=== PATIENT | female | born 1930 | race Caucasian/White ===

== ENCOUNTER 2017-01-18 09:13 | Inpatient (IN) | payer MEDICARE, BC ==
--- NOTE | 2017-01-18 09:16 | EDM.PDOC ---
ED HPI GENERAL MEDICAL PROBLEM - General Chief Complaint: Trauma Stated Complaint: [facility] Time Seen by Provider: 01/18/17 09:16 - History of Present Illness INITIAL COMMENTS - FREE TEXT/NARRATIVE: 86-year-old female presents emergency room brought in by EMS after falling at her assisted living center. The patient denies any dizziness or palpitations. However, while putting her earrings on this morning the patient fell backwards she has a 17 or 18 year history of Parkinson's disease. She complains mostly of a headache and neck pain she has some right hip discomfort and left shoulder discomfort. She does not have chest pain or breathing difficulties. The patient feels weak however this is not new. Patient is not on anticoagulation at this time. She is taking Namenda and her Parkinson's medication. She is treated for hypertension. She did take her medications just before coming in. Her blood pressure is noted to be quite elevated upon arrival here. The patient has had a hip replacement on the right she has some discomfort after the fall this seems to be improving she has some left shoulder discomfort. She comes in with a c-collar in place and her discomfort seems to be improving she did strike the back of her head she has no bleeding or laceration. Right Hip Pain Score (Numeric/FACES): 5 Left Shoulder Pain Score (Numeric/FACES): 5 Head Pain Score (Numeric/FACES): 5 - Related Data Allergies Allergy/AdvReac Type Severity Reaction Status Date / Time No Known Allergies Allergy Verified 01/18/17 09:33 Home Meds: Home Meds Acetaminophen 650 mg PO BID 09/07/14 [History] Acetaminophen 650 mg PO Q4H PRN 09/07/14 [History] Calcium Carbonate [Tums] 500 mg PO DAILY PRN 09/07/14 [History] Carbidopa/Levodopa [Sinemet 25-100 mg] 1 tab PO BID 09/07/14 [History] Carbidopa/Levodopa [Sinemet Cr 50-200 mg] 1 tab PO QID 09/07/14 [History] Docusate Sodium 100 mg PO BID 09/07/14 [History] Memantine HCl [Namenda Xr] 28 mg PO DAILY 09/07/14 [History] Metoprolol Tartrate 12.5 mg PO BID 09/07/14 [History] Omeprazole [Prilosec] 20 mg PO DAILY 09/07/14 [History] Sertraline HCl [Zoloft] 75 mg PO DAILY 09/07/14 [History] Simethicone [Gas-X] 80 mg PO QID 09/07/14 [History] clonazePAM [Klonopin] 0.5 mg PO QPM 09/07/14 [History] guaiFENesin/Dextromethorphan [Tussin Dm Liquid] 5 ml PO Q4H PRN 09/07/14 [ History] rOPINIRole HCl [Requip] 4 mg PO BID 09/07/14 [History] Aspirin [Adult Low Dose Aspirin EC] 81 mg PO DAILY 10/02/15 [History] Cholecalciferol (Vitamin D3) [Vitamin D3] 1,000 unit PO BID 10/02/15 [History] Magnesium Chloride [Slow-Mag] 250 mg PO DAILY 10/02/15 [History] [place]-3/DHA/Epa/Fish Oil [Fish Oil 1,000 mg Softgel] 1,000 mg PO BID 10/02/15 [ History] Polyethylene Glycol 3350 [MiraLAX] 17 gm PO QAM PRN 10/02/15 [History] Sennosides [Senna] 1 tab PO BID 10/02/15 [History] Calcium Carbonate [Calcium] 500 mg PO DAILY 01/18/17 [History] Cyanocobalamin (Vitamin B12) [Vitamin B12] 1,000 mcg PO DAILY 01/18/17 [History] Donepezil [Aricept] 10 mg PO BEDTIME 01/18/17 [History] Enalapril [Vasotec] 5 mg PO DAILY 01/18/17 [History] Gabapentin [Neurontin] 200 mg PO TID 01/18/17 [History] Guaifenesin/Pseudoephedrne HCl [Mucinex D ER 600-60 mg Tablet] 1 tab PO BID PRN 01/18/17 [History] Hydrocortisone [Preparation H] 1 applic TOP BID PRN 01/18/17 [History] Mag Hydrox/Al Hydrox/Simeth [Antacid Plus Anti-Gas] 10 ml PO DAILY 01/18/17 [ History] Naproxen Sodium [Aleve] 220 mg PO BID 01/18/17 [History] Oxybutynin 2.5 mg PO BID 01/18/17 [History] Polyethylene Glycol 3350 [MiraLAX] 17 g PO DAILY 01/18/17 [History] QUEtiapine [SEROquel] 12.5 mg PO BEDTIME 01/18/17 [History] Simvastatin [Zocor] 10 mg PO BEDTIME 01/18/17 [History] Past Medical History HEENT History: Reports: Impaired Vision Gastrointestinal History: Reports: Chronic Constipation Other Genitourinary History: 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 Has been followed by Dr Reyna since that time.) - Past Surgical History Musculoskeletal Surgical History: Reports: Hip Replacement Social & Family History - Tobacco Use Smoking Status *Q: Never Smoker - Alcohol Use Days Per Week of Alcohol Use: 0 - Recreational Drug Use Recreational Drug Use: No - Living Situation & Occupation Living situation: Reports: Assisted Living Occupation: Retired Review of Systems - Review of Systems Review Of Systems: See Below Constitutional: Reports: Weakness. Denies: No Symptoms, Chills, Fever Eyes: Reports: No Symptoms Ears: Reports: No Symptoms Nose: Reports: No Symptoms Mouth/Throat: Reports: No Symptoms Respiratory: Reports: No Symptoms Cardiovascular: Reports: No Symptoms GI/Abdominal: Reports: No Symptoms Genitourinary: Reports: No Symptoms Musculoskeletal: Reports: No Symptoms Skin: Reports: No Symptoms Neurological: Reports: Weakness, Other (She has a history of Parkinson's) Psychiatric: Reports: No Symptoms ED EXAM, GENERAL - Physical Exam Exam: See Below Exam Limited By: No Limitations General Appearance: Alert, No Apparent Distress, Other (C collar in place the patient answers questions appropriately and is able to participate with the exam she is a little vague in answering some of her questions.) Eye Exam: Bilateral Eye: EOMI, Normal Inspection Ear Exam: Bilateral Ear: Canal Normal, TM normal Nose: Normal Inspection, Normal Mucosa, No Blood Throat/Mouth: Normal Inspection, Normal Lips, Normal Oropharynx Head: Atraumatic, Normocephalic Neck: Other (C collar in place) Respiratory/Chest: No Respiratory Distress, Lungs Clear, Normal Breath Sounds Cardiovascular: Regular Rate, Rhythm, No Edema, No Murmur GI/Abdominal: Normal Bowel Sounds, Soft, Non-Tender Extremities: Other (No crepitation or discomfort with pelvic manipulation she has some vague discomfort left shoulder the patient can move her right hip in the supine position she can lift her leg up internally and externally rotated against resistance without significant discomfort neurovascular status of the foot is normal) Neurological: Alert, Oriented, Normal Cognition Psychiatric: Normal Affect, Flat Affect Skin Exam: Warm, Dry, Intact Lymphatic: No Adenopathy Course - Vital Signs Last Recorded V/S: Last Vital Signs Temp 36.2 C 01/18/17 09:18 Pulse 63 01/18/17 10:55 Resp 14 01/18/17 09:18 BP 197/86 H 01/18/17 10:55 Pulse Ox 94 L 01/18/17 09:18 - Orders/Labs/Meds Orders: Active Orders 24 hr Category Date Time Status EKG Documentation Completion [RC] STAT Care 01/18/17 10:54 Active Cervical Spine wo Cont [CT] Stat Exams 01/18/17 09:29 Taken Chest 2V [CR] Stat Exams 01/18/17 10:47 Taken Head wo Cont [CT] Stat Exams 01/18/17 09:29 Taken Hip Min 2V or 3V w Pelvis Rt [CR] Stat Exams 01/18/17 09:30 Taken Shoulder Comp Lt [CR] Stat Exams 01/18/17 09:30 Taken CULTURE BLOOD [BC] Stat Lab 01/18/17 12:41 Received CULTURE BLOOD [BC] Stat Lab 01/18/17 12:47 Received cefTRIAXone [Rocephin] 1 gm Med 01/18/17 13:10 Active Sodium Chloride 0.9% [Normal Saline] 100 ml IV ONETIME Blood Culture x2 Reflex Set [OM.PC] Stat Oth 01/18/17 12:17 Ordered Medication Orders Ceftriaxone Sodium 1 gm/ (Sodium Chloride) 100 mls @ 200 mls/hr IV ONETIME ONE Stop: 01/18/17 13:39 Last Admin: 01/18/17 13:18 Dose: 200 mls/hr Labs: Laboratory Tests 01/18/17 01/18/17 01/18/17 Range/Units 10:59 10:59 10:59 WBC 7.59 (3.98-10.04) K/mm3 RBC 4.30 (3.98-5.22) M/mm3 Hgb 13.7 (11.2-15.7) gm/L Hct 40.7 (34.1-44.9) % MCV 94.7 (79.4-94.8) fl MCH 31.9 (25.6-32.2) pg MCHC 33.7 (32.2-35.5) g/dl RDW Std Deviation 49.3 H (36.4-46.3) fL Plt Count 114 L (182-369) K/mm3 MPV 9.9 (9.4-12.3) fl Neutrophils % (Manual) 69 H (40-60) % Band Neutrophils % 0 (0-10) % Lymphocytes % (Manual) 25 (20-40) % Atypical Lymphs % 0 % Monocytes % (Manual) 2 (2-10) % Eosinophils % (Manual) 4 (0.7-5.8) % Basophils % (Manual) 0 L (0.1-1.2) Platelet Estimate Adequate Plt Morphology Comment Normal RBC Morph Comment Normal Sodium 148 H (136-145) mEq/L Potassium 3.9 (3.5-5.1) mEq/L Chloride 110 H (98-107) mEq/L Carbon Dioxide 24 (21-32) mEq/L Anion Gap 17.9 H (5-15) BUN 26 H (7-18) mg/dL Creatinine 1.0 (0.55-1.02) mg/dL Est Cr Clr Drug Dosing 37.68 mL/min Estimated GFR (MDRD) 53 (>60) mL/min BUN/Creatinine Ratio 26.0 H (14-18) Glucose 108 (83-115) mg/dL Calcium 8.8 (8.5-10.1) mg/dL Total Bilirubin 0.5 (0.2-1.0) mg/dL AST 15 (15-37) U/L ALT 8 L (14-59) U/L Alkaline Phosphatase 70 (46-116) U/L Troponin I < 0.017 (0.00-0.056) ng/mL NT-Pro-B Natriuret Pep TNP Total Protein 6.4 (6.4-8.2) g/dl Albumin 3.8 (3.4-5.0) g/dl Globulin 2.6 gm/dL Albumin/Globulin Ratio 1.5 (1-2) Meds: Medications Generic Name Dose Route Start Last Admin Trade Name Freq PRN Reason Stop Dose Admin Ceftriaxone Sodium 1 gm/ 100 mls @ 200 mls/hr 01/18/17 13:10 01/18/17 13:18 Sodium Chloride IV 01/18/17 13:39 200 mls/hr ONETIME ONE Administration Discontinued Medications Generic Name Dose Route Start Last Admin Trade Name Dana PRN Reason Stop Dose Admin Ceftriaxone Sodium 1,000 mg 01/18/17 12:30 Rocephin IVPUSH Q24H KELLY Labetalol HCl 5 mg 01/18/17 10:15 01/18/17 10:27 Normodyne IVPUSH 01/18/17 10:16 5 mg ONETIME ONE Administration Protocol Labetalol HCl 5 mg 01/18/17 10:55 01/18/17 10:55 Normodyne IVPUSH 01/18/17 10:56 5 mg ONETIME ONE Administration Protocol - Re-Assessments/Exams Free Text/Narrative Re-Assessment/Exam: 01/18/17 10:[address] were obtained which show no acute changes. Favor shoulder show some degenerative changes fracture dislocation visualized portion of the clavicle appears normal pelvis and hip show a prosthesis that appears to be in good alignment no obvious loosening however I will have radiology over read this. C-collar removed patient is doing much better with this she has reasonable range of motion with her left shoulder. She states it was clicking and grinding while pushing her wheelchair around, this was before her fall but she cannot get it to make noise now. Patient's blood pressure was initially quite elevated at 202 she received 5 mg labetalol and this is coming down. Patient's O2 saturation is as low as 86% at times usually around 88% to 90%. She does have this intermittent cough we'll go ahead and check a chest x-ray 01/18/17 12:26 Chest x-ray is suspicious for left lower lobe retrocardiac infiltrate. Patient has been started on oxygen and we tried to wean her off her sats dropped to 87- 88%. Case discussed with Dr. Ellis our hospitalist who would like to get a radiology interpretation on this patient. I will start Rocephin 1 g after obtaining blood cultures. 01/18/17 13:19 Radiology thought she was developing bronchial wall thickening in the lower lobes suspicious of bronchitis with hypoxia patient be admitted on a suspicion for pneumonia. Departure - Departure Time of Disposition: 13:10 Disposition: Admitted As Inpatient 68 Clinical Impression: Hypoxia, Pneumonia, Hypertension - Discharge Information Referrals: RatFidel fenton MD [Primary Care Provider] - Forms: ED Department Discharge - My Orders Last 24 Hours: My Active Orders 01/18/17 09:29 Cervical Spine wo Cont [CT] Stat Head wo Cont [CT] Stat 01/18/17 09:30 Hip Min 2V or 3V w Pelvis Rt [CR] Stat Shoulder Comp Lt [CR] Stat 01/18/17 10:47 Chest 2V [CR] Stat 01/18/17 10:54 EKG Documentation Completion [RC] STAT 01/18/17 12:17 Blood Culture x2 Reflex Set [OM.PC] Stat 01/18/17 12:41 CULTURE BLOOD [BC] Stat 01/18/17 12:47 CULTURE BLOOD [BC] Stat 01/18/17 13:10 cefTRIAXone [Rocephin] 1 gm Sodium Chloride 0.9% [Normal Saline] 100 ml IV ONETIME - Assessment/Plan Last 24 Hours: My Active Orders 01/18/17 09:29 Cervical Spine wo Cont [CT] Stat Head wo Cont [CT] Stat 01/18/17 09:30 Hip Min 2V or 3V w Pelvis Rt [CR] Stat Shoulder Comp Lt [CR] Stat 01/18/17 10:47 Chest 2V [CR] Stat 01/18/17 10:54 EKG Documentation Completion [RC] STAT 01/18/17 12:17 Blood Culture x2 Reflex Set [OM.PC] Stat 01/18/17 12:41 CULTURE BLOOD [BC] Stat 01/18/17 12:47 CULTURE BLOOD [BC] Stat 01/18/17 13:10 cefTRIAXone [Rocephin] 1 gm Sodium Chloride 0.9% [Normal Saline] 100 ml IV ONETIME
[2017-01-18] MEDS ORDERED: Labetalol 100 MG/20 ML MDV IVPUSH ONE ×2 (10:15→10:55)
[2017-01-18] MEDS ORDERED: cefTRIAXone 1,000 MG VIAL IVPUSH SCH (12:30)
[2017-01-18] MEDS ORDERED: cefTRIAXone 1 GM in Sodium Chloride 0.9% 100 ML IV ONE (13:10)
[2017-01-18] MEDS ORDERED: Acetaminophen 325 MG Tab PO ONE (13:35)
--- NOTE | 2017-01-18 14:23 | PCM.HP ---
H&P History of Present Illness - General Date of Service: 01/18/17 Admit Problem/Dx: Admission Diagnosis/Problem Admission Diagnosis/Problem Pneumonia Source of Information: Patient, Family, Old Records, Provider, RN Notes Reviewed History Limitations: Reports: Physical Impairment - History of Present Illness Initial Comments - Free Text/Narative: This is an 86-year-old elderly white female with past medical history of Hypertension, Hyperlipidemia, GERD, Myasthenia Gravis, Osteoarthritis, Chronic Malaise and Fatigue, Bone and Cartilage disorder, Shortness of Breath, Magnesium Metabolism Disorder, Hyperhidrosis, Restless Leg Syndrome, Anxiety, Depression, and Paralysis Agitans/Parkinson's Disease who presents to emergency department for evaluation after suffering a a non traumatic fall at her assisted living facility. She denies any prodromal symptoms and reports no LOC. Patient carries a history of Parkinson's disease for over 17 or 18 years now. On presentation to the emergency department, she complains of headache, neck pain, some right hip discomfort and left shoulder pain. While in ED, she was found to have blood pressure readings of 199/94 and 197/96 mm per mercury. At time of my examination, she denies any of the above issues except for chronic generalized weakness. Her initial workup shows a CBC remarkable for platelet of 114, and neutrophils of 69%. Her chemistry is remarkable for sodium of 148, chloride of 110, anion gap of 17.9, BUN of 26, and ALT of 8. Her initial troponin is less than 0.017. Her head CT scan, cervical CT scan, and shoulder x-ray are all negative for acute abnormal findings. However her chest x -ray report reads bronchial wall thickening in the lower lobe suspicious for bronchitis. Patient is being admitted for bronchitis, malignant hypertension and status post non-traumatic fall. She is DNR/DNI Right Hip Pain Score (Numeric/FACES): 5 Left Shoulder Pain Score (Numeric/FACES): 5 Head Pain Score (Numeric/FACES): 5 - Related Data Allergies/Adverse Reactions: Allergies Allergy/AdvReac Type Severity Reaction Status Date / Time No Known Allergies Allergy Verified 01/18/17 09:33 Home Medications: Home Meds Acetaminophen 650 mg PO BID 09/07/14 [History] Acetaminophen 650 mg PO Q4H PRN 09/07/14 [History] Calcium Carbonate [Tums] 500 mg PO DAILY PRN 09/07/14 [History] Carbidopa/Levodopa [Sinemet 25-100 mg] 1 tab PO BID 09/07/14 [History] Carbidopa/Levodopa [Sinemet Cr 50-200 mg] 1 tab PO QID 09/07/14 [History] Docusate Sodium 100 mg PO BID 09/07/14 [History] Memantine HCl [Namenda Xr] 28 mg PO DAILY 09/07/14 [History] Metoprolol Tartrate 12.5 mg PO BID 09/07/14 [History] Omeprazole [Prilosec] 20 mg PO DAILY 09/07/14 [History] Sertraline HCl [Zoloft] 75 mg PO DAILY 09/07/14 [History] Simethicone [Gas-X] 80 mg PO QID 09/07/14 [History] clonazePAM [Klonopin] 0.5 mg PO QPM 09/07/14 [History] guaiFENesin/Dextromethorphan [Tussin Dm Liquid] 5 ml PO Q4H PRN 09/07/14 [ History] rOPINIRole HCl [Requip] 4 mg PO BID 09/07/14 [History] Aspirin [Adult Low Dose Aspirin EC] 81 mg PO DAILY 10/02/15 [History] Cholecalciferol (Vitamin D3) [Vitamin D3] 1,000 unit PO BID 10/02/15 [History] [place]-3/DHA/Epa/Fish Oil [Fish Oil 1,000 mg Softgel] 1,000 mg PO BID 10/02/15 [ History] Polyethylene Glycol 3350 [MiraLAX] 17 gm PO QAM PRN 10/02/15 [History] Sennosides [Senna] 1 tab PO BID 10/02/15 [History] Calcium Carbonate [Calcium] 500 mg PO DAILY 01/18/17 [History] Cyanocobalamin (Vitamin B12) [Vitamin B12] 1,000 mcg PO DAILY 01/18/17 [History] Donepezil [Aricept] 10 mg PO BEDTIME 01/18/17 [History] Enalapril [Vasotec] 5 mg PO DAILY 01/18/17 [History] Gabapentin [Neurontin] 200 mg PO TID 01/18/17 [History] Guaifenesin/Pseudoephedrne HCl [Mucinex D ER 600-60 mg Tablet] 1 tab PO BID PRN 01/18/17 [History] Hydrocortisone [Preparation H] 1 applic TOP BID PRN 01/18/17 [History] Mag Hydrox/Al Hydrox/Simeth [Antacid Plus Anti-Gas] 10 ml PO DAILY PRN 01/18/17 [History] Naproxen Sodium [Aleve] 220 mg PO BID 01/18/17 [History] Oxybutynin 2.5 mg PO BID 01/18/17 [History] Polyethylene Glycol 3350 [MiraLAX] 17 g PO DAILY 01/18/17 [History] QUEtiapine [SEROquel] 12.5 mg PO BEDTIME 01/18/17 [History] Simvastatin [Zocor] 10 mg PO BEDTIME 01/18/17 [History] Past Medical History HEENT History: Reports: Impaired Vision Other HEENT History: esophogeal reflux Cardiovascular History: Reports: High Cholesterol, Hypertension Respiratory History: Reports: SOB Gastrointestinal History: Reports: Chronic Constipation Other 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 Has been followed by Dr Reyna since that time.) Other Neuro History: unsteady gait, altered mental status, RLS, myestenia gravis Psychiatric History: Reports: Anxiety, Depression - Past Surgical History Musculoskeletal Surgical History: Reports: Hip Replacement Social & Family History - Family History Family Medical History: Noncontributory - Tobacco Use Smoking Status *Q: Never Smoker Second Hand Smoke Exposure: No - Caffeine Use Caffeine Use: Reports: None - Alcohol Use Days Per Week of Alcohol Use: 0 - Recreational Drug Use Recreational Drug Use: No - Living Situation & Occupation Living situation: Reports: Assisted Living Occupation: Retired H&P Review of Systems - Review of Systems: Review Of Systems: See Below General: Reports: Weakness. Denies: Fever, Chills, Malaise HEENT: Reports: No Symptoms Pulmonary: Denies: Shortness of Breath Cardiovascular: Denies: Chest Pain Gastrointestinal: Denies: Abdominal Pain, Nausea, Vomiting Genitourinary: Reports: No Symptoms Musculoskeletal: Reports: No Symptoms Skin: Denies: Cyanosis, Diaphoresis, Bruising, Erythema Psychiatric: Denies: Confusion, Depression, Anxiety Neurological: Reports: Pre-Existing Deficit, Weakness, Gait Disturbance. Denies : Confusion Hematologic/Lymphatic: Reports: No Symptoms Immunologic: Reports: No Symptoms Exam - Exam Exam: See Below - Vital Signs Vital Signs: Last Vital Signs Temp 36.2 C 01/18/17 09:18 Pulse 63 01/18/17 10:55 Resp 14 01/18/17 09:18 BP 197/86 H 01/18/17 10:55 Pulse Ox 94 L 01/18/17 09:18 Weight: 70.307 kg - Exam General: Alert, Oriented, Cooperative HEENT: Conjunctiva Clear, EACs Clear, EOMI, Hearing Intact, Mucosa Moist & [place] , Nares Patent, Normal Nasal Septum, Posterior Pharynx Clear, Pupils Equal, Pupils Reactive Neck: Supple, Trachea Midline Lungs: Clear to Auscultation, Normal Respiratory Effort Cardiovascular: Regular Rate, Regular Rhythm GI/Abdominal Exam: Normal Bowel Sounds, Soft, Non-Tender, No Organomegaly, No Distention, No Abnormal Bruit (Female) Exam: Deferred Rectal (Female) Exam: Deferred Back Exam: Normal Inspection, Decreased Range of Motion Extremities: Normal Inspection, Normal Range of Motion, Non-Tender, No Pedal Edema, Normal Capillary Refill, Other (Bradykinesia) Peripheral Pulses: 2+: Posterior Tibial (L), Posterior Tibial (R), Dorsalis Pedis (L), Dorsalis Pedis (R) Skin: Warm, Dry, Intact Neuro Extensive - Mental Status: Oriented x3, Normal Cognition, Memory Intact Neuro Extensive - Motor, Sensory, Reflexes: CN II-XII Intact (limitedt but fairly intact), Abnormal Gait, Tremor (resting) Psychiatric: Alert, Normal Mood. 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 - All imaging studies are negative: Right Hip XR, Head CT and Cervical CT scan - Fall Precautions - PT/OT for eval Bronchitis - CXR report reads bronchial lower lobe thickening; no infiltrate or consolidations - She has cough but w/o fever - I do not think she has pneumonia - She already received IV ATB in ED; Continue IV Rocephin and will add Azithromycin - Mycoplasma Ag/Strep pneumonia Test and Sputum Cx Malignant HTN - Has hx/o HTN - Blood pressure readings of 199/94 and 197/96 mm per mercury on admission - Resume Home BP Meds - PRN anti-hypertensive medications for BP > 140/90 Chronic: Hypertension Hyperlipidemia GERD Myasthenia gravis Osteoarthritis Malaise and Fatigue Bone and cartilage disorder Shortness of breath Magnesium metabolism disorder Hyperhidrosis Restless leg syndrome Anxiety Depression Paralysis Agitans/Parkinson's Disease Plan: Admit to Med-Surg Resume Home Meds Routine AM Labs PT/OT consult Fall Precautions CM/SW for d/c planning Additional orders as above Code status: DNR/DNI
[2017-01-18] MEDS ORDERED: Albuterol/Ipratropium 3.0-0.5 MG/3 ML Neb Soln NEB PRN (15:57)
[2017-01-18] MEDS ORDERED: Bisacodyl 5 MG Tab PO PRN (15:57)
[2017-01-18] MEDS ORDERED: Acetaminophen/HYDROcodone 325-5 MG Tab PO PRN (15:57)
[2017-01-18] MEDS ORDERED: LORazepam 2 MG/ML MDV IV PRN (15:57)
[2017-01-18] MEDS ORDERED: HYDROmorphone 1 MG/ML Syringe IVPUSH PRN (15:57)
[2017-01-18] MEDS ORDERED: Temazepam 7.5 MG Cap PO PRN (15:57)
[2017-01-18] MEDS ORDERED: Polyethylene Glycol 3350 Powder 17 GM Packet PO PRN (15:57)
[2017-01-18] MEDS ORDERED: Ondansetron 4 MG/2 ML SDV IV PRN (15:57)
[2017-01-18] MEDS ORDERED: Docusate Sodium 100 MG Cap PO PRN (15:57)
[2017-01-18] MEDS ORDERED: Acetaminophen 325 MG Tab PO PRN ×2 (15:57→16:05)
[2017-01-18] MEDS ORDERED: Calcium Carbonate 500 MG Tab.Chew PO PRN (16:05)
[2017-01-18] MEDS ORDERED: guaiFENesin/Dextromethorphan 100-10 MG/5 ML Soln 5 ML Cup PO PRN (16:05)
[2017-01-18] MEDS ORDERED: Hydrocortisone 1% Crm 30 GM Tube TOP PRN (16:05)
[2017-01-18] MEDS ORDERED: Azithromycin 500 MG in Sodium Chloride 0.9% 250 ML IV ONE (16:11)
[2017-01-18] MEDS ORDERED: Metoprolol Tartrate 5 MG/5 ML SDV IVPUSH PRN (17:02)
[2017-01-18] MEDS: ClonazePAM 0.5 MG Tab PO SCH (17:24)
[2017-01-18] MEDS: Simethicone 80 MG Tab.Chew PO SCH ×2 (17:24→20:25)
[2017-01-18] MEDS: Saccharomyces Boulardii (Probiotic) 250 MG Cap PO SCH (20:26)
[2017-01-18] MEDS: Oxybutynin 5 MG Tab PO SCH (20:27)
[2017-01-18] MEDS: Gabapentin 100 MG Cap PO SCH (20:29)
[2017-01-18] MEDS: QUEtiapine 25 MG Tab PO SCH (20:29)
[2017-01-18] MEDS: Donepezil 10 MG Tab PO SCH (20:31)
[2017-01-18] MEDS: Metoprolol Tartrate 25 MG Tab PO SCH (20:32)
[2017-01-18] MEDS: Simvastatin 10 MG Tab PO SCH (20:33)
[2017-01-18] MEDS: rOPINIRole 1 MG Tab PO SCH (20:35)
[2017-01-18] MEDS: Cholecalciferol (Vitamin D3) 1,000 Unit Tab PO SCH (20:36)
[2017-01-18] MEDS: Sennosides 8.6 MG Tab PO SCH (20:36)
[2017-01-18] MEDS: Acetaminophen 325 MG Tab PO SCH (20:36)
[2017-01-18] MEDS ORDERED: Carbidopa/Levodopa 25-100 MG Tab PO SCH (21:00)
[2017-01-19] MEDS: Carbidopa/Levodopa 25-100 MG Tab.ER PO SCH ×6 (02:20→20:29)
[2017-01-19] MEDS ORDERED: Carbidopa/Levodopa 25-100 MG Tab PO SCH (06:00)
--- NOTE | 2017-01-19 07:49 | PCM.PN ---
- General Info Date of Service: 01/19/17 Admission Dx/Problem (Free Text): Admission Diagnosis/Problem Admission Diagnosis/Problem Pneumonia Subjective Update: Follow Up Functional Status: Reports: Pain Controlled, Tolerating Diet, Urinating, New Symptoms (Chest pain with sneezing) - Review of Systems General: Denies: Fever, Weakness, Fatigue, Malaise, Chills HEENT: Reports: No Symptoms Pulmonary: Denies: Shortness of Breath Cardiovascular: Reports: Chest Pain Gastrointestinal: Denies: Abdominal Pain, Nausea, Vomiting Genitourinary: Reports: No Symptoms Musculoskeletal: Reports: No Symptoms Skin: Denies: Cyanosis Neurological: Reports: Difficulty Walking, Gait Disturbance. Denies: Confusion , Weakness Psychiatric: Denies: Depression, Anxiety, Agitation, Hallucinations Systems Review Comment:: No significant overnight or acute issues. She slept good. She reports chest pain with sneezing. Her HRs slightly dropped in the upper 50s. She has no other new complaints. - Patient Data Vitals - Most Recent: Last Vital Signs Temp 36.4 C 01/19/17 05:20 Pulse 59 L 01/19/17 05:20 Resp 18 01/19/17 05:20 BP 138/78 01/19/17 04:00 Pulse Ox 93 L 01/19/17 05:20 Weight - Most Recent: 70.307 kg I&O - Last 24 Hours: Intake & Output 01/18/17 01/19/17 01/19/17 22:59 06:59 14:59 Intake Total 400 Balance 400 Lab Results Last 24 Hours: Laboratory Results - last 24 hr 01/19/17 Range/Units 06:14 WBC 5.84 (3.98-10.04) K/mm3 RBC 4.20 (3.98-5.22) M/mm3 Hgb 13.4 (11.2-15.7) gm/L Hct 40.4 (34.1-44.9) % MCV 96.2 H (79.4-94.8) fl MCH 31.9 (25.6-32.2) pg MCHC 33.2 (32.2-35.5) g/dl RDW Std Deviation 51.1 H (36.4-46.3) fL Plt Count 108 L (182-369) K/mm3 MPV 10.5 (9.4-12.3) fl Neut % (Auto) 62.1 (34.0-71.1) % Lymph % (Auto) 22.3 (19.3-51.7) % [place] % (Auto) 6.8 (4.7-12.5) % Eos % (Auto) 8.2 H (0.7-5.8) Baso % (Auto) 0.3 (0.1-1.2) % Neut # (Auto) 3.62 (1.56-6.13) K/mm3 Lymph # (Auto) 1.30 (1.18-3.74) K/mm3 [place]cher # (Auto) 0.40 H (0.24-0.36) K/mm3 Eos # (Auto) 0.48 H (0.04-0.36) K/mm3 Baso # (Auto) 0.02 (0.01-0.08) K/mm3 Med Orders - Current: Current Medications Acetaminophen (Tylenol) 650 mg PO Q4H PRN PRN Reason: Pain Acetaminophen (Tylenol) 650 mg PO BID [facility] Last Admin: 01/18/17 20:36 Dose: 650 mg Hydrocodone Bitart/Acetaminophen (Lewis 325-5 Mg) 1 tab PO Q4H PRN PRN Reason: Pain (moderate 4-6) Al Hydroxide/Mg Hydroxide (Mag-Al Plus) 10 ml PO DAILY [facility] Albuterol/Ipratropium (Duoneb 3.0-0.5 Mg/3 Ml) 3 ml NEB Q4H PRN PRN Reason: Shortness Of Breath/wheezing Aspirin (Halfprin) 81 mg PO DAILY [facility] Bisacodyl (Dulcolax) 5 mg PO DAILY PRN PRN Reason: Constipation Calcium Carbonate/Glycine (Tums) 500 mg PO DAILY [facility] Calcium Carbonate/Glycine (Tums) 500 mg PO DAILY PRN PRN Reason: Heartburn Carbidopa/Levodopa (Sinemet Cr 25-100 Mg) 2 tab PO Q6H [facility] Last Admin: 01/19/17 02:26 Dose: Not Given Carbidopa/Levodopa (Sinemet 25-100 Mg) 1 tab PO DAILY@0600 [facility] Last Admin: 01/19/17 05:31 Dose: 1 tab Cholecalciferol (Vitamin D3) 1,000 units PO BID [facility] Last Admin: 01/18/17 20:36 Dose: 1,000 units Clonazepam (Klonopin) 0.5 mg PO QPM [facility] Last Admin: 01/18/17 17:24 Dose: 0.5 mg Cyanocobalamin (Vitamin B12) 1,000 mcg PO DAILY [facility] Docusate Sodium (Colace) 100 mg PO BID PRN PRN Reason: Constipation Donepezil HCl (Aricept) 10 mg PO BEDTIME [facility] Last Admin: 01/18/17 20:31 Dose: 10 mg Enalapril Maleate (Vasotec) 5 mg PO DAILY [facility] Gabapentin (Neurontin) 200 mg PO TID [facility] Last Admin: 01/18/17 20:29 Dose: 200 mg Guaifenesin/Phenylephrine HCl (Robitussin Dm) 5 ml PO Q4H PRN PRN Reason: Cough Hydralazine HCl (Apresoline) 10 mg IVPUSH Q4H PRN PRN Reason: Hypertension Hydrocortisone (Hydrocortisone 1% Crm) 0 gm TOP BID PRN PRN Reason: Pain Hydromorphone HCl (Dilaudid) 0.25 mg IVPUSH Q2H PRN PRN Reason: Pain (severe 7-10) Azithromycin 500 mg/ Sodium (Chloride) 250 mls @ 250 mls/hr IV Q24H [facility] Ceftriaxone Sodium 1 gm/ (Sodium Chloride) 100 mls @ 200 mls/hr IV Q24H [facility] Lorazepam (Ativan) 0.5 mg IV Q6H PRN PRN Reason: Anxiety Magnesium Sulfate (Pharmacy To Dose - Magnesium Replacement) 1 dose .XX ASDIRECTED [facility] Metoprolol Tartrate (Lopressor) 12.5 mg PO BID [facility] Last Admin: 01/18/17 20:32 Dose: 12.5 mg Metoprolol Tartrate (Lopressor) 5 mg IVPUSH Q4H PRN PRN Reason: Tachycardia Memantine Xr [ (Nemenda Xr] 28mg) 28 mg PO DAILY [facility] Naproxen Sodium (220mg) 220 mg PO BID [facility] Ondansetron HCl (Zofran) 4 mg IV Q6H PRN PRN Reason: Nausea/Vomiting Oxybutynin Chloride (Oxybutynin) 2.5 mg PO BID [facility] Last Admin: 01/18/17 20:27 Dose: 2.5 mg Pantoprazole Sodium (Protonix) 40 mg PO DAILY [facility] Polyethylene Glycol (Miralax) 17 gm PO DAILY PRN PRN Reason: Constipation Polyethylene Glycol (Miralax) 17 gm PO DAILY [facility] Potassium Chloride (Pharmacy To Dose - Potassium Replacement) 1 dose .XX ASDIRECTED [facility] Quetiapine Fumarate (Seroquel) 12.5 mg PO BEDTIME [facility] Last Admin: 01/18/17 20:29 Dose: 12.5 mg Ropinirole HCl (Requip) 4 mg PO BID [facility] Last Admin: 01/18/17 20:35 Dose: 4 mg Saccharomyces Boulardii (Florastor) 500 mg PO BID [facility] Last Admin: 01/18/17 20:26 Dose: 500 mg Senna (Senna) 8.6 mg PO BID [facility] Last Admin: 01/18/17 20:36 Dose: 8.6 mg Senna/Docusate Sodium (Senna Plus) 1 tab PO BID PRN PRN Reason: Constipation Sertraline HCl (Zoloft) 75 mg PO DAILY [facility] Simethicone (Simethicone) 80 mg PO QID [facility] Last Admin: 01/18/17 20:25 Dose: 80 mg Simvastatin (Zocor) 10 mg PO BEDTIME [facility] Last Admin: 01/18/17 20:33 Dose: 10 mg Temazepam (Restoril) 7.5 mg PO BEDTIME PRN PRN Reason: Sleep Discontinued Medications Acetaminophen (Tylenol) 650 mg PO NOW ONE Stop: 01/18/17 13:36 Last Admin: 01/18/17 13:39 Dose: 650 mg Ceftriaxone Sodium (Rocephin) 1,000 mg IVPUSH Q24H [facility] Last Admin: 01/18/17 13:22 Dose: Not Given Ceftriaxone Sodium 1 gm/ (Sodium Chloride) 100 mls @ 200 mls/hr IV ONETIME ONE Stop: 01/18/17 13:39 Last Admin: 01/18/17 13:18 Dose: 200 mls/hr Azithromycin 500 mg/ Sodium (Chloride) 250 mls @ 250 mls/hr IV ONETIME ONE Stop: 01/18/17 17:10 Last Admin: 01/18/17 17:23 Dose: 250 mls/hr Labetalol HCl (Normodyne) 5 mg IVPUSH ONETIME ONE PRN Reason: Protocol Stop: 01/18/17 10:16 Last Admin: 01/18/17 10:27 Dose: 5 mg Labetalol HCl (Normodyne) 5 mg IVPUSH ONETIME ONE PRN Reason: Protocol Stop: 01/18/17 10:56 Last Admin: 01/18/17 10:55 Dose: 5 mg - Exam General: Alert, Oriented, Cooperative, No Acute Distress HEENT: Pupils Equal, Pupils Reactive, EOMI, Mucous Membr. Moist/[place]ason Neck: Supple, Trachea Midline, No JVD Lungs: Clear to Auscultation, Normal Respiratory Effort Cardiovascular: Regular Rate, Regular Rhythm GI/Abdominal Exam: Normal Bowel Sounds, Soft, Non-Tender, No Organomegaly, No Distention, No Abnormal Bruit, No Mass (Female) Exam: Deferred Back Exam: Normal Inspection, Decreased Range of Motion Extremities: Normal Inspection, Non-Tender, No Pedal Edema, Normal Capillary Refill, Other (bradykinesia) Peripheral Pulses: 2+: Dorsalis Pedis (L), Dorsalis Pedis (R) Skin: Warm, Dry, Intact Neurological: No New Focal Deficit. No: Normal Gait Psy/Mental Status: Alert, Normal Mood. No: Normal Affect, Anxious, Agitated, Suicidal Ideation, Withdrawal Symptoms - Problem List Review Problem List Initiated/Reviewed/Updated: Yes - My Orders Last 24 Hours: My Active Orders 01/18/17 15:57 Height and Weight [RC] DAILY Intake and Output [RC] 04,16 Oxygen Therapy [RC] PRN Pulse Oximetry [RC] PRN Up With Assistance [RC] ASDIRECTED Up ad [place] [RC] ASDIRECTED VTE/DVT Education [RC] PER UNIT ROUTINE Vital Signs [RC] Q4HR Acetaminophen/HYDROcodone [Lewis 325-5 MG] 1 tab PO Q4H PRN Albuterol/Ipratropium [DuoNeb 3.0-0.5 MG/3 ML] 3 ml NEB Q4H PRN Bisacodyl [Dulcolax] 5 mg PO DAILY PRN Docusate Sodium [Colace] 100 mg PO BID PRN Docusate Sodium/Sennosides [Senna Plus] 1 tab PO BID PRN HYDROmorphone [Dilaudid] 0.25 mg IVPUSH Q2H PRN LORazepam [Ativan] 0.5 mg IV Q6H PRN Ondansetron [Zofran] 4 mg IV Q6H PRN Polyethylene Glycol 3350 [MiraLAX] 17 gm PO DAILY PRN Temazepam [Restoril] 7.5 mg PO BEDTIME PRN Sequential Compression Device [OM.PC] Per Unit Routine Resuscitation Status Routine 01/18/17 16:03 Antiembolic Devices [RC] QSHIFT 01/18/17 16:05 RT Aerosol Therapy [RC] ASDIRECTED Acetaminophen [Tylenol] 650 mg PO Q4H PRN Calcium Carbonate [Tums] 500 mg PO DAILY PRN Dextromethorphan/guaiFENesin [Robitussin DM] 5 ml PO Q4H PRN Hydrocortisone [Hydrocortisone 1% Crm] 0 gm TOP BID PRN 01/18/17 16:10 CULTURE SPUTUM + SMEAR [RM] Stat STREP PNEUMONIAE ANTIGEN [MREF] Stat 01/18/17 17:00 Simethicone 80 mg PO QID 01/18/17 17:02 Metoprolol Tartrate [Lopressor] 5 mg IVPUSH Q4H PRN hydrALAZINE [Apresoline] 10 mg IVPUSH Q4H PRN 01/18/17 17:15 Magnesium Rep Pharmacy to Dose [Pharmacy to Dose - Magnesium Replacement] 1 dose .XX ASDIRECTED Potassium Rep Pharmacy to Dose [Pharmacy to Dose - Potassium Replacement] 1 dose .XX ASDIRECTED 01/18/17 18:00 ClonazePAM [KlonoPIN] 0.5 mg PO QPM 01/18/17 21:00 Acetaminophen [Tylenol] 650 mg PO BID Cholecalciferol (Vitamin D3) [Vitamin D3] 1,000 units PO BID Donepezil [Aricept] 10 mg PO BEDTIME Gabapentin [Neurontin] 200 mg PO TID Metoprolol Tartrate [Lopressor] 12.5 mg PO BID Naproxen Sodium 220 mg PO BID Oxybutynin 2.5 mg PO BID QUEtiapine [SEROquel] 12.5 mg PO BEDTIME Saccharomyces Boulardii [Florastor] 500 mg PO BID Sennosides [Senna] 8.6 mg PO BID Simvastatin [Zocor] 10 mg PO BEDTIME rOPINIRole [Requip] 4 mg PO BID 01/18/17 Dinner Regular Diet [DIET] 01/19/17 06:00 Carbidopa/Levodopa [Sinemet 25-100 mg] 1 tab PO DAILY@0600 01/19/17 06:14 CRP [C-REACTIVE PROTEIN] [CHEM] AM 01/19/17 09:00 Alum Hydrox/Mag Hydrox/Simeth [Mag-Al Plus] 10 ml PO DAILY Aspirin [Halfprin] 81 mg PO DAILY Calcium Carbonate [Tums] 500 mg PO DAILY Cyanocobalamin (Vitamin B12) [Vitamin B12] 1,000 mcg PO DAILY Enalapril [Vasotec] 5 mg PO DAILY Memantine HCl 28 mg PO DAILY Pantoprazole [ProTONIX] 40 mg PO DAILY Polyethylene Glycol 3350 [MiraLAX] 17 gm PO DAILY Sertraline [Zoloft] 75 mg PO DAILY 01/19/17 13:00 cefTRIAXone [Rocephin] 1 gm Sodium Chloride 0.9% [Normal Saline] 100 ml IV Q24H 01/19/17 16:00 Azithromycin [Zithromax] 500 mg Sodium Chloride 0.9% [Normal Saline] 250 ml IV Q24H 01/20/17 05:11 CBC WITH AUTO DIFF [HEME] AM CRP [C-REACTIVE PROTEIN] [CHEM] AM 01/21/17 05:11 CBC WITH AUTO DIFF [HEME] AM CRP [C-REACTIVE PROTEIN] [CHEM] AM 01/22/17 05:11 CBC WITH AUTO DIFF [HEME] AM CRP [C-REACTIVE PROTEIN] [CHEM] AM 01/23/17 05:11 CRP [C-REACTIVE PROTEIN] [CHEM] AM - Plan Plan:: Assessment/Plan: Acute: Bronchitis - CXR report reads bronchial lower lobe thickening; no infiltrate or consolidations - She has cough but w/o fever - I do not think she has pneumonia - She already received IV ATB in ED; Continue IV Rocephin and will add Azithromycin - Mycoplasma Ag/Strep pneumonia Test and Sputum Cx Malignant HTN, Improved - Has hx/o HTN - Blood pressure readings of 199/94 and 197/96 mm per mercury on admission - Resume Home BP Meds - PRN anti-hypertensive medications for BP > 140/90 - Will add low dose Clonddine if needed - Continue to monitor Mild Hypernatremia, Improved - NA 148--> 146 - She is on psychotropic meds - Continue to monitor S/p Status Post Fall - Non-traumatic - She is not on blood thinners - 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
[2017-01-19] MEDS ORDERED: cefTRIAXone 1 GM Vial IV SCH (09:00)
[2017-01-19] MEDS: Polyethylene Glycol 3350 Powder 17 GM Packet PO SCH (10:02)
[2017-01-19] MEDS: Memantine 10 MG Tab PO SCH ×2 (10:02→20:24)
[2017-01-19] MEDS: rOPINIRole 1 MG Tab PO SCH ×2 (10:03→20:36)
[2017-01-19] MEDS: Acetaminophen 325 MG Tab PO SCH ×2 (10:04→20:22)
[2017-01-19] MEDS: Oxybutynin 5 MG Tab PO SCH ×2 (10:04→20:27)
[2017-01-19] MEDS: Pantoprazole 40 MG Tab.CR PO SCH (10:05)
[2017-01-19] MEDS: Cyanocobalamin (Vitamin B12) 1,000 MCG Tab PO SCH (10:05)
[2017-01-19] MEDS: Sertraline 50 MG Tab PO SCH (10:06)
[2017-01-19] MEDS: Simethicone 80 MG Tab.Chew PO SCH ×4 (10:06→20:28)
[2017-01-19] MEDS: Sennosides 8.6 MG Tab PO SCH ×2 (10:07→20:24)
[2017-01-19] MEDS: Gabapentin 100 MG Cap PO SCH ×3 (10:07→20:41)
[2017-01-19] MEDS: Aspirin 81 MG Tab.EC PO SCH (10:08)
[2017-01-19] MEDS: Calcium Carbonate 500 MG Tab.Chew PO SCH (10:08)
[2017-01-19] MEDS: Enalapril 5 MG Tab PO SCH (10:14)
[2017-01-19] MEDS: Saccharomyces Boulardii (Probiotic) 250 MG Cap PO SCH ×2 (10:14→20:35)
[2017-01-19] MEDS: Metoprolol Tartrate 25 MG Tab PO SCH ×2 (10:15→20:34)
[2017-01-19] MEDS ORDERED: HYDROmorphone 0.5 MG/0.5 ML Syringe IVPUSH PRN (11:05)
[2017-01-19] MEDS: Aluminum Hydroxide/Magnesium Hydroxide/Simethicone Susp 30 ML Cup PO SCH (12:06)
[2017-01-19] MEDS: Cholecalciferol (Vitamin D3) 1,000 Unit Tab PO SCH ×2 (12:07→20:26)
[2017-01-19] MEDS: hydrALAZINE 20 MG/ML SDV IVPUSH PRN (12:31)
[2017-01-19] MEDS ORDERED: cefTRIAXone 1 GM in Sodium Chloride 0.9% 100 ML IV SCH (13:00)
[2017-01-19] MEDS: Carbidopa/Levodopa 25-100 MG Tab PO SCH (16:31)
[2017-01-19] MEDS: Azithromycin 500 MG in Sodium Chloride 0.9% 250 ML IV SCH (16:34)
--- NOTE | 2017-01-19 17:11 | CR ---
Left shoulder: Three views of the left shoulder were obtained. Comparison: No prior left shoulder study. Joint space narrowing and degenerative sclerosis and subchondral cystic change is seen within the glenohumeral joint. Inferior spurring is also noted within the glenohumeral joint. Calcification is seen off the medial inferior shoulder believed to be dystrophic and incidental. Acromioclavicular joint shows minimal degenerative change. No acute fracture, dislocation or other bony abnormality is seen. Impression: 1. Severe degenerative change within the glenohumeral joint. 2. Other incidental findings. Nothing acute is appreciated. Diagnostic code #2
--- NOTE | 2017-01-19 17:11 | CT ---
Head CT Technique: Multiple axial sections through the brain were obtained. Intravenous contrast was not utilized. Comparison: Previous head CT study of 10/02/15. Findings: Ventricles along with basal cisterns and sulci over the convexities are mildly prominent for the patient's age. Diminished density is noted within portions of the periventricular and subcortical white matter compatible with small vessel ischemic demyelination change. No other abnormal parenchymal densities are seen. No evidence of intracranial hemorrhage. No midline shift or mass effect is seen. Bone window settings were reviewed which show no acute calvarial abnormality. Visualized sinuses are clear. Impression: 1. Senescent change as described above. 2. Nothing acute is appreciated on noncontrast head CT study. Diagnostic code #2 I agree with preliminary report issued by [facility] ([facility] preliminary report dictated on 01/18/17, 11:19 AM Central Time)
--- NOTE | 2017-01-19 17:11 | CT ---
CT cervical spine Technique: Multiple axial sections were obtained from above C1 inferiorly to the mid T2 level. Reconstructed sagittal and coronal images were reviewed. Comparison: Prior CT cervical spine exam of 12/17/11 is available. Findings: Moderate disc space narrowing is noted at C2-C3 through C4-C5. Severe disc space narrowing is noted C5-C6 and C6-C7. Degenerative endplate sclerosis is noted C5-C6 and C6-C7. Posterior osteophytes are noted at C3-C4, C5-C6 and C6-C7. Anterior osteophytes are scattered throughout the cervical spine which are most prominent at C5-C6 and C6-C7. Degenerative uncovertebral change is seen throughout the cervical spine which are most prominent at C5-C6 and C6-C7. Degenerative change is noted between the dens and anterior arch of C1. Moderate left-sided neural foraminal stenosis is noted at C3-C4. Mild to moderate bilateral neural foraminal stenosis is noted at C4-C5. Moderate bilateral neural foraminal stenosis is noted at C5-C6. Vertebral bodies and posterior arches are intact with no fracture being seen. No abnormal subluxation is noted. Diffuse degenerative apophyseal change is scattered throughout the cervical spine. Impression: 1. Diffuse degenerative change as described above. 2. Nothing acute is seen on CT study of the cervical spine. 3. When compared to prior cervical spine CT exam, degenerative change has mildly progressed. Diagnostic code #2 I agree with preliminary report issued by [facility] ([facility] preliminary report dictated on 01/18/17, 11:21 AM Central Time)
--- NOTE | 2017-01-19 17:11 | CR ---
Chest: Two views of the chest were obtained. Comparison: Previous chest x-ray of 09/07/14. Slight bronchial wall thickening is seen within portions of the perihilar markings. Minimal bronchitis is possible. Lungs otherwise are clear. Heart size appears at the upper limits of normal. Tortuous thoracic aorta is seen. Mild degenerative change is scattered within the spine. Impression: 1. Possible slight bronchitis within the right perihilar region. 2. Other incidental findings. Diagnostic code #3 Agree with preliminary report issued by [facility] ([facility] preliminary report dictated on 01/18/17, 1:33 PM Central Time)
--- NOTE | 2017-01-19 17:11 | CR ---
Pelvis and right hip: AP view of the pelvis was obtained as well as AP and lateral views of the right hip. Comparison: Previous pelvis and right hip study of 02/18/13. 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 Components are aligned. Joint space narrowing and osteophytes are seen within the left hip. Degenerative change is partially visualized within the lumbar spine. Bony structures are osteopenic. Heterotopic bone is noted around the lateral right hip. No acute fracture or other abnormality is appreciated. Impression: 1. Right hip prosthesis. Degenerative change and other incidental findings. 2. No acute abnormality is identified on AP pelvis or on two-view right hip exam. Diagnostic code #2 I agree with preliminary report issued by [facility] ([facility] preliminary report dictated on 01/18/17, 11:52 AM Central Time)
[2017-01-19] MEDS: ClonazePAM 0.5 MG Tab PO SCH (18:00)
[2017-01-19] MEDS: Donepezil 10 MG Tab PO SCH (20:30)
[2017-01-19] MEDS: QUEtiapine 25 MG Tab PO SCH (20:31)
[2017-01-19] MEDS: Simvastatin 10 MG Tab PO SCH (20:33)
[2017-01-20] MEDS: Carbidopa/Levodopa 25-100 MG Tab.ER PO SCH ×5 (01:43→22:27)
[2017-01-20] MEDS: Carbidopa/Levodopa 25-100 MG Tab PO SCH ×2 (06:11→15:01)
[2017-01-20] MEDS: Metoprolol Tartrate 25 MG Tab PO SCH ×2 (07:50→22:27)
[2017-01-20] MEDS: Saccharomyces Boulardii (Probiotic) 250 MG Cap PO SCH ×2 (09:17→22:23)
[2017-01-20] MEDS: rOPINIRole 1 MG Tab PO SCH ×2 (09:18→22:25)
[2017-01-20] MEDS: Sertraline 50 MG Tab PO SCH (09:18)
[2017-01-20] MEDS: Calcium Carbonate 500 MG Tab.Chew PO SCH (09:19)
[2017-01-20] MEDS: Cyanocobalamin (Vitamin B12) 1,000 MCG Tab PO SCH (09:19)
[2017-01-20] MEDS: Gabapentin 100 MG Cap PO SCH ×3 (09:19→22:27)
[2017-01-20] MEDS: Pantoprazole 40 MG Tab.CR PO SCH (09:19)
[2017-01-20] MEDS: Memantine 10 MG Tab PO SCH ×2 (09:19→22:25)
[2017-01-20] MEDS: Sennosides 8.6 MG Tab PO SCH ×2 (09:19→22:25)
[2017-01-20] MEDS: Simethicone 80 MG Tab.Chew PO SCH ×4 (09:19→22:27)
[2017-01-20] MEDS: Acetaminophen 325 MG Tab PO SCH ×2 (09:20→22:24)
[2017-01-20] MEDS: Enalapril 5 MG Tab PO SCH (09:20)
[2017-01-20] MEDS: Cholecalciferol (Vitamin D3) 1,000 Unit Tab PO SCH ×2 (09:20→22:24)
[2017-01-20] MEDS: Oxybutynin 5 MG Tab PO SCH ×2 (09:22→22:24)
[2017-01-20] MEDS: Aspirin 81 MG Tab.EC PO SCH (09:23)
[2017-01-20] MEDS: Polyethylene Glycol 3350 Powder 17 GM Packet PO SCH (09:24)
[2017-01-20] MEDS: Aluminum Hydroxide/Magnesium Hydroxide/Simethicone Susp 30 ML Cup PO SCH (09:26)
--- NOTE | 2017-01-20 11:09 | PCM.PN ---
<Norma Liu - Last Filed: 01/20/17 11:18> - General Info Date of Service: 01/20/17 Admission Dx/Problem (Free Text): Admission Diagnosis/Problem Admission Diagnosis/Problem Pneumonia Functional Status: Reports: Pain Controlled, Tolerating Diet, Ambulating. Denies: New Symptoms - Review of Systems General: Denies: Fever, Chills HEENT: Reports: No Symptoms Pulmonary: Reports: Cough. Denies: Shortness of Breath, Sputum, Wheezing Cardiovascular: Denies: Chest Pain, Palpitations, Dyspnea on Exertion Gastrointestinal: Denies: Abdominal Pain, Decreased Appetite, Diarrhea, Melena, Nausea, Vomiting Genitourinary: Denies: Dysuria, Frequency, Urgency Musculoskeletal: Reports: Joint Pain (states that her left hip bothered was a little painful last night, but otherwise fine now.). Denies: Back Pain, Joint Swelling Skin: Denies: Bruising, Pruritis Neurological: Reports: Tremors (hx of Parkinson's). Denies: Confusion, Dizziness, Numbness, Paresthesia, Tingling, Change in Speech Psychiatric: Denies: Confusion, Agitation, Hallucinations Systems Review Comment:: Pleasant 86yoF, who states that she is feeling much better than yesterday. No major concerns/complaints at this time. - Patient Data Vitals - Most Recent: Last Vital Signs Temp 97.3 F 01/20/17 07:48 Pulse 58 L 01/20/17 07:50 Resp 18 01/20/17 07:48 BP 121/57 L 01/20/17 07:50 Pulse Ox 92 L 01/20/17 10:13 Weight - Most Recent: 69.127 kg I&O - Last 24 Hours: Intake & Output 01/19/17 01/20/17 01/20/17 22:59 06:59 14:59 Intake Total 1050 300 Balance 1050 300 Lab Results Last 24 Hours: Laboratory Results - last 24 hr 01/20/17 01/20/17 Range/Units 05:55 05:55 WBC 6.20 (3.98-10.04) K/mm3 RBC 4.01 (3.98-5.22) M/mm3 Hgb 12.6 (11.2-15.7) gm/L Hct 38.5 (34.1-44.9) % MCV 96.0 H (79.4-94.8) fl MCH 31.4 (25.6-32.2) pg MCHC 32.7 (32.2-35.5) g/dl RDW Std Deviation 50.8 H (36.4-46.3) fL Plt Count 115 L (182-369) K/mm3 MPV 10.3 (9.4-12.3) fl Neut % (Auto) 54.4 (34.0-71.1) % Lymph % (Auto) 26.6 (19.3-51.7) % [place] % (Auto) 8.7 (4.7-12.5) % Eos % (Auto) 9.7 H (0.7-5.8) Baso % (Auto) 0.3 (0.1-1.2) % Neut # (Auto) 3.37 (1.56-6.13) K/mm3 Lymph # (Auto) 1.65 (1.18-3.74) K/mm3 [place] # (Auto) 0.54 H (0.24-0.36) K/mm3 Eos # (Auto) 0.60 H (0.04-0.36) K/mm3 Baso # (Auto) 0.02 (0.01-0.08) K/mm3 Sodium 146 H (136-145) mEq/L Potassium 4.1 (3.5-5.1) mEq/L Chloride 110 H (98-107) mEq/L Carbon Dioxide 25 (21-32) mEq/L Anion Gap 15.1 H (5-15) BUN 29 H (7-18) mg/dL Creatinine 1.0 (0.55-1.02) mg/dL Est Cr Clr Drug Dosing 37.68 mL/min Estimated GFR (MDRD) 53 (>60) mL/min BUN/Creatinine Ratio 29.0 H (14-18) Glucose 98 (83-115) mg/dL Calcium 8.8 (8.5-10.1) mg/dL Magnesium 2.2 (1.8-2.4) mg/dl C-Reactive Protein 1.9 H* (<1.0) mg/dL Med Orders - Current: Current Medications Acetaminophen (Tylenol) 650 mg PO Q4H PRN PRN Reason: Pain Acetaminophen (Tylenol) 650 mg PO BID [facility] Last Admin: 01/20/17 09:20 Dose: 650 mg Hydrocodone Bitart/Acetaminophen ([place] 325-5 Mg) 1 tab PO Q4H PRN PRN Reason: Pain (moderate 4-6) Al Hydroxide/Mg Hydroxide (Mag-Al Plus) 10 ml PO DAILY [facility] Last Admin: 01/20/17 09:26 Dose: Not Given Albuterol/Ipratropium (Duoneb 3.0-0.5 Mg/3 Ml) 3 ml NEB Q4H PRN PRN Reason: Shortness Of Breath/wheezing Aspirin (Halfprin) 81 mg PO DAILY [facility] Last Admin: 01/20/17 09:23 Dose: 81 mg Bisacodyl (Dulcolax) 5 mg PO DAILY PRN PRN Reason: Constipation Calcium Carbonate/Glycine (Tums) 500 mg PO DAILY [facility] Last Admin: 01/20/17 09:19 Dose: 500 mg Calcium Carbonate/Glycine (Tums) 500 mg PO DAILY PRN PRN Reason: Heartburn Carbidopa/Levodopa (Sinemet Cr 25-100 Mg) 2 tab PO Q6H [facility] Last Admin: 01/20/17 09:23 Dose: 2 tab Carbidopa/Levodopa (Sinemet 25-100 Mg) 1 tab PO BIDAC [facility] Last Admin: 01/20/17 06:11 Dose: 1 tab Cholecalciferol (Vitamin D3) 1,000 units PO BID [facility] Last Admin: 01/20/17 09:20 Dose: 1,000 units Clonazepam (Klonopin) 0.5 mg PO QPM [facility] Last Admin: 01/19/17 18:00 Dose: 0.5 mg Cyanocobalamin (Vitamin B12) 1,000 mcg PO DAILY [facility] Last Admin: 01/20/17 09:19 Dose: 1,000 mcg Docusate Sodium (Colace) 100 mg PO BID PRN PRN Reason: Constipation Donepezil HCl (Aricept) 10 mg PO BEDTIME [facility] Last Admin: 01/19/17 20:30 Dose: 10 mg Enalapril Maleate (Vasotec) 5 mg PO DAILY [facility] Last Admin: 01/20/17 09:20 Dose: 5 mg Gabapentin (Neurontin) 200 mg PO TID [facility] Last Admin: 01/20/17 09:19 Dose: 200 mg Guaifenesin/Phenylephrine HCl (Robitussin Dm) 5 ml PO Q4H PRN PRN Reason: Cough Hydralazine HCl (Apresoline) 10 mg IVPUSH Q4H PRN PRN Reason: Hypertension Last Admin: 01/19/17 12:31 Dose: 10 mg Hydrocortisone (Hydrocortisone 1% Crm) 0 gm TOP BID PRN PRN Reason: Pain Hydromorphone HCl (Dilaudid) 0.25 mg IVPUSH Q2H PRN PRN Reason: Pain (severe 7-10) Azithromycin 500 mg/ Sodium (Chloride) 250 mls @ 250 mls/hr IV Q24H [facility] Last Admin: 01/19/17 16:34 Dose: 250 mls/hr Ceftriaxone Sodium 1 gm/ (Sodium Chloride) 100 mls @ 200 mls/hr IV Q24H [facility] Last Admin: 01/19/17 12:06 Dose: 200 mls/hr Lorazepam (Ativan) 0.5 mg IV Q6H PRN PRN Reason: Anxiety Magnesium Sulfate (Pharmacy To Dose - Magnesium Replacement) 0 dose .XX ASDIRECTED PRN PRN Reason: RX TO WATCH MAG LEVELS Memantine (Namenda) 10 mg PO BID [facility] Last Admin: 01/20/17 09:19 Dose: 10 mg Metoprolol Tartrate (Lopressor) 12.5 mg PO BID [facility] Last Admin: 01/20/17 07:50 Dose: 12.5 mg Metoprolol Tartrate (Lopressor) 5 mg IVPUSH Q4H PRN PRN Reason: Tachycardia Naproxen (Naprosyn) 375 mg PO BID [facility] Last Admin: 01/20/17 09:21 Dose: 375 mg Ondansetron HCl (Zofran) 4 mg IV Q6H PRN PRN Reason: Nausea/Vomiting Oxybutynin Chloride (Oxybutynin) 2.5 mg PO BID [facility] Last Admin: 01/20/17 09:22 Dose: 2.5 mg Pantoprazole Sodium (Protonix) 40 mg PO DAILY [facility] Last Admin: 01/20/17 09:19 Dose: 40 mg Polyethylene Glycol (Miralax) 17 gm PO DAILY PRN PRN Reason: Constipation Polyethylene Glycol (Miralax) 17 gm PO DAILY [facility] Last Admin: 01/20/17 09:24 Dose: 17 gm Potassium Chloride (Pharmacy To Dose - Potassium Replacement) 0 dose .XX ASDIRECTED PRN PRN Reason: RX TO WATCH K LEVELS Quetiapine Fumarate (Seroquel) 12.5 mg PO BEDTIME [facility] Last Admin: 01/19/17 20:31 Dose: 12.5 mg Ropinirole HCl (Requip) 4 mg PO BID [facility] Last Admin: 01/20/17 09:18 Dose: 4 mg Saccharomyces Boulardii (Florastor) 500 mg PO BID [facility] Last Admin: 01/20/17 09:17 Dose: 500 mg Senna (Senna) 8.6 mg PO BID [facility] Last Admin: 01/20/17 09:19 Dose: 8.6 mg Senna/Docusate Sodium (Senna Plus) 1 tab PO BID PRN PRN Reason: Constipation Sertraline HCl (Zoloft) 75 mg PO DAILY [facility] Last Admin: 01/20/17 09:18 Dose: 75 mg Simethicone (Simethicone) 80 mg PO QID [facility] Last Admin: 01/20/17 09:19 Dose: 80 mg Simvastatin (Zocor) 10 mg PO BEDTIME [facility] Last Admin: 01/19/17 20:33 Dose: 10 mg Temazepam (Restoril) 7.5 mg PO BEDTIME PRN PRN Reason: Sleep Discontinued Medications Acetaminophen (Tylenol) 650 mg PO NOW ONE Stop: 01/18/17 13:36 Last Admin: 01/18/17 13:39 Dose: 650 mg Carbidopa/Levodopa (Sinemet 25-100 Mg) 1 tab PO DAILY@0600 [facility] Last Admin: 01/19/17 05:31 Dose: 1 tab Ceftriaxone Sodium (Rocephin) 1,000 mg IVPUSH Q24H [facility] Last Admin: 01/18/17 13:22 Dose: Not Given Hydromorphone HCl (Dilaudid) 0.25 mg IVPUSH Q2H PRN PRN Reason: Pain (severe 7-10) Ceftriaxone Sodium 1 gm/ (Sodium Chloride) 100 mls @ 200 mls/hr IV ONETIME ONE Stop: 01/18/17 13:39 Last Admin: 01/18/17 13:18 Dose: 200 mls/hr Azithromycin 500 mg/ Sodium (Chloride) 250 mls @ 250 mls/hr IV ONETIME ONE Stop: 01/18/17 17:10 Last Admin: 01/18/17 17:23 Dose: 250 mls/hr Labetalol HCl (Normodyne) 5 mg IVPUSH ONETIME ONE PRN Reason: Protocol Stop: 01/18/17 10:16 Last Admin: 01/18/17 10:27 Dose: 5 mg Labetalol HCl (Normodyne) 5 mg IVPUSH ONETIME ONE PRN Reason: Protocol Stop: 01/18/17 10:56 Last Admin: 01/18/17 10:55 Dose: 5 mg - Exam Quality Assessment: Supplemental Oxygen (d/c o2 if SpO2 is >90% on RA) General: Alert, Oriented, Cooperative, No Acute Distress HEENT: Pupils Equal, Pupils Reactive, EOMI, Mucous Membr. Moist/[place] Neck: Supple, Trachea Midline Lungs: Clear to Auscultation, Normal Respiratory Effort, Decreased Breath Sounds. No: Rhonchi, Wheezing Cardiovascular: Regular Rate, Regular Rhythm, No Murmurs GI/Abdominal Exam: Normal Bowel Sounds, Soft, Non-Tender, No Organomegaly, No Distention, No Mass (Female) Exam: Deferred Back Exam: Normal Inspection Extremities: Normal Inspection, Non-Tender, No Pedal Edema, Normal Capillary Refill Peripheral Pulses: 2+: Radial (L), Radial (R), Dorsalis Pedis (L), Dorsalis Pedis (R) Skin: Warm, Dry, Intact Neurological: No New Focal Deficit Psy/Mental Status: Alert, Normal Affect, Normal Mood - Problem List Review Problem List Initiated/Reviewed/Updated: Yes - Plan Plan:: Assessment/Plan: Acute: Bronchitis, Improved - CXR report done 01/18/2017 reads bronchial lower lobe thickening; no infiltrate or consolidations - She has cough but w/o fever - Pneumonia is unlikely due to lack of fever or increased, colored sputum production and clear, but diminished BS on auscultation - Mycoplasma serum IgM is negative / Sputum for Cx and sensitivity-has not been collected yet - She was on 1LNC this AM with SpO2 ~94-95%, D/C O2 if SpO2 on RA is >90%, - Possible home O2 eval needed if SpO2 <90% on RA. 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 - All imaging studies are negative: Right Hip XR, Head CT and Cervical CT scan - Fall Precautions - PT/OT for eval - pending Chronic: Hypertension Hyperlipidemia GERD Myasthenia gravis Osteoarthritis Malaise and Fatigue Bone and cartilage disorder Shortness of breath Magnesium metabolism disorder Hyperhidrosis Restless leg syndrome Anxiety Depression Paralysis Agitans/Parkinson's Disease Plan: She is clinically stable Continue current treatment Routine AM Labs, if not D/C'd home today PT/OT consult RT consult for possible Home O2 set-up Fall Precautions CM/SW for d/c planning Additional orders as above Code status: DNR/DNI It is my clinical impression that she could be discharged to home today. <Tolu Ellis - Last Filed: 01/20/17 18:54> - General Info Subjective Update: Follow Up Functional Status: Reports: Pain Controlled, Tolerating Diet, Ambulating, Urinating. Denies: New Symptoms - Review of Systems General: Denies: Fever, Fatigue, Malaise, Chills HEENT: Reports: No Symptoms Pulmonary: Reports: Cough. Denies: Shortness of Breath, Sputum, Wheezing Cardiovascular: Denies: Chest Pain, Palpitations, Dyspnea on Exertion Gastrointestinal: Denies: Abdominal Pain, Decreased Appetite, Difficulty Swallowing, Nausea, Vomiting Genitourinary: Reports: No Symptoms Musculoskeletal: Reports: Joint Pain Neurological: Reports: Tremors (resting), Difficulty Walking, Gait Disturbance. Denies: Confusion, Dizziness, Numbness, Tingling Psychiatric: Denies: Confusion, Depression, Anxiety, Agitation, Hallucinations Systems Review Comment:: No significant overnight or acute issues. She is about the same and no worsening of presenting symptoms. She is alert/awake and in no acute distress. - Patient Data Vitals - Most Recent: Last Vital Signs Temp 36.6 C 01/20/17 12:26 Pulse 61 01/20/17 12:26 Resp 18 01/20/17 12:26 BP 78/44 L 01/20/17 16:00 Pulse Ox 93 L 01/20/17 15:00 I&O - Last 24 Hours: Intake & Output 01/20/17 01/20/17 01/20/17 06:59 14:59 22:59 Intake Total 300 940 Balance 300 940 Lab Results Last 24 Hours: Laboratory Results - last 24 hr 01/20/17 01/20/17 Range/Units 05:55 05:55 WBC 6.20 (3.98-10.04) K/mm3 RBC 4.01 (3.98-5.22) M/mm3 Hgb 12.6 (11.2-15.7) gm/L Hct 38.5 (34.1-44.9) % MCV 96.0 H (79.4-94.8) fl MCH 31.4 (25.6-32.2) pg MCHC 32.7 (32.2-35.5) g/dl RDW Std Deviation 50.8 H (36.4-46.3) fL Plt Count 115 L (182-369) K/mm3 MPV 10.3 (9.4-12.3) fl Neut % (Auto) 54.4 (34.0-71.1) % Lymph % (Auto) 26.6 (19.3-51.7) % [place] % (Auto) 8.7 (4.7-12.5) % Eos % (Auto) 9.7 H (0.7-5.8) Baso % (Auto) 0.3 (0.1-1.2) % Neut # (Auto) 3.37 (1.56-6.13) K/mm3 Lymph # (Auto) 1.65 (1.18-3.74) K/mm3 [place] # (Auto) 0.54 H (0.24-0.36) K/mm3 Eos # (Auto) 0.60 H (0.04-0.36) K/mm3 Baso # (Auto) 0.02 (0.01-0.08) K/mm3 Sodium 146 H (136-145) mEq/L Potassium 4.1 (3.5-5.1) mEq/L Chloride 110 H (98-107) mEq/L Carbon Dioxide 25 (21-32) mEq/L Anion Gap 15.1 H (5-15) BUN 29 H (7-18) mg/dL Creatinine 1.0 (0.55-1.02) mg/dL Est Cr Clr Drug Dosing 37.68 mL/min Estimated GFR (MDRD) 53 (>60) mL/min BUN/Creatinine Ratio 29.0 H (14-18) Glucose 98 (83-115) mg/dL Calcium 8.8 (8.5-10.1) mg/dL Magnesium 2.2 (1.8-2.4) mg/dl C-Reactive Protein 1.9 H* (<1.0) mg/dL Med Orders - Current: Current Medications Acetaminophen (Tylenol) 650 mg PO Q4H PRN PRN Reason: Pain Acetaminophen (Tylenol) 650 mg PO BID [facility] Last Admin: 01/20/17 09:20 Dose: 650 mg Hydrocodone Bitart/Acetaminophen ([place] 325-5 Mg) 1 tab PO Q4H PRN PRN Reason: Pain (moderate 4-6) Al Hydroxide/Mg Hydroxide (Mag-Al Plus) 10 ml PO DAILY [facility] Last Admin: 01/20/17 09:26 Dose: Not Given Albuterol/Ipratropium (Duoneb 3.0-0.5 Mg/3 Ml) 3 ml NEB Q4H PRN PRN Reason: Shortness Of Breath/wheezing Aspirin (Halfprin) 81 mg PO DAILY [facility] Last Admin: 01/20/17 09:23 Dose: 81 mg Bisacodyl (Dulcolax) 5 mg PO DAILY PRN PRN Reason: Constipation Calcium Carbonate/Glycine (Tums) 500 mg PO DAILY [facility] Last Admin: 01/20/17 09:19 Dose: 500 mg Calcium Carbonate/Glycine (Tums) 500 mg PO DAILY PRN PRN Reason: Heartburn Carbidopa/Levodopa (Sinemet Cr 25-100 Mg) 2 tab PO Q6H [facility] Last Admin: 01/20/17 13:07 Dose: Not Given Carbidopa/Levodopa (Sinemet 25-100 Mg) 1 tab PO BIDAC [facility] Last Admin: 01/20/17 15:01 Dose: 1 tab Cholecalciferol (Vitamin D3) 1,000 units PO BID [facility] Last Admin: 01/20/17 09:20 Dose: 1,000 units Clonazepam (Klonopin) 0.5 mg PO QPM [facility] Last Admin: 01/20/17 17:59 Dose: 0.5 mg Cyanocobalamin (Vitamin B12) 1,000 mcg PO DAILY [facility] Last Admin: 01/20/17 09:19 Dose: 1,000 mcg Docusate Sodium (Colace) 100 mg PO BID PRN PRN Reason: Constipation Donepezil HCl (Aricept) 10 mg PO BEDTIME [facility] Last Admin: 01/19/17 20:30 Dose: 10 mg Enalapril Maleate (Vasotec) 5 mg PO DAILY [facility] Last Admin: 01/20/17 09:20 Dose: 5 mg Gabapentin (Neurontin) 200 mg PO TID [facility] Last Admin: 01/20/17 15:01 Dose: 200 mg Guaifenesin/Phenylephrine HCl (Robitussin Dm) 5 ml PO Q4H PRN PRN Reason: Cough Hydralazine HCl (Apresoline) 10 mg IVPUSH Q4H PRN PRN Reason: Hypertension Last Admin: 01/20/17 12:36 Dose: 10 mg Hydrocortisone (Hydrocortisone 1% Crm) 0 gm TOP BID PRN PRN Reason: Pain Hydromorphone HCl (Dilaudid) 0.25 mg IVPUSH Q2H PRN PRN Reason: Pain (severe 7-10) Azithromycin 500 mg/ Sodium (Chloride) 250 mls @ 250 mls/hr IV Q24H [facility] Last Admin: 01/20/17 15:01 Dose: 250 mls/hr Ceftriaxone Sodium 1 gm/ (Dextrose/Water) 100 mls @ 200 mls/hr IV Q24H [facility] Last Admin: 01/20/17 12:36 Dose: 200 mls/hr Lorazepam (Ativan) 0.5 mg IV Q6H PRN PRN Reason: Anxiety Magnesium Sulfate (Pharmacy To Dose - Magnesium Replacement) 0 dose .XX ASDIRECTED PRN PRN Reason: RX TO WATCH MAG LEVELS Memantine (Namenda) 10 mg PO BID [facility] Last Admin: 01/20/17 09:19 Dose: 10 mg Metoprolol Tartrate (Lopressor) 12.5 mg PO BID [facility] Last Admin: 01/20/17 07:50 Dose: 12.5 mg Metoprolol Tartrate (Lopressor) 5 mg IVPUSH Q4H PRN PRN Reason: Tachycardia Naproxen (Naprosyn) 375 mg PO BID [facility] Last Admin: 01/20/17 09:21 Dose: 375 mg Ondansetron HCl (Zofran) 4 mg IV Q6H PRN PRN Reason: Nausea/Vomiting Oxybutynin Chloride (Oxybutynin) 2.5 mg PO BID [facility] Last Admin: 01/20/17 09:22 Dose: 2.5 mg Pantoprazole Sodium (Protonix) 40 mg PO DAILY [facility] Last Admin: 01/20/17 09:19 Dose: 40 mg Polyethylene Glycol (Miralax) 17 gm PO DAILY PRN PRN Reason: Constipation Polyethylene Glycol (Miralax) 17 gm PO DAILY [facility] Last Admin: 01/20/17 09:24 Dose: 17 gm Potassium Chloride (Pharmacy To Dose - Potassium Replacement) 0 dose .XX ASDIRECTED PRN PRN Reason: RX TO WATCH K LEVELS Quetiapine Fumarate (Seroquel) 12.5 mg PO BEDTIME [facility] Last Admin: 01/19/17 20:31 Dose: 12.5 mg Ropinirole HCl (Requip) 4 mg PO BID [facility] Last Admin: 01/20/17 09:18 Dose: 4 mg Saccharomyces Boulardii (Florastor) 500 mg PO BID [facility] Last Admin: 01/20/17 09:17 Dose: 500 mg Senna (Senna) 8.6 mg PO BID [facility] Last Admin: 01/20/17 09:19 Dose: 8.6 mg Senna/Docusate Sodium (Senna Plus) 1 tab PO BID PRN PRN Reason: Constipation Sertraline HCl (Zoloft) 75 mg PO DAILY [facility] Last Admin: 01/20/17 09:18 Dose: 75 mg Simethicone (Simethicone) 80 mg PO QID [facility] Last Admin: 01/20/17 17:59 Dose: 80 mg Simvastatin (Zocor) 10 mg PO BEDTIME [facility] Last Admin: 01/19/17 20:33 Dose: 10 mg Temazepam (Restoril) 7.5 mg PO BEDTIME PRN PRN Reason: Sleep Discontinued Medications Acetaminophen (Tylenol) 650 mg PO NOW ONE Stop: 01/18/17 13:36 Last Admin: 01/18/17 13:39 Dose: 650 mg Carbidopa/Levodopa (Sinemet 25-100 Mg) 1 tab PO DAILY@0600 [facility] Last Admin: 01/19/17 05:31 Dose: 1 tab Ceftriaxone Sodium (Rocephin) 1,000 mg IVPUSH Q24H [facility] Last Admin: 01/18/17 13:22 Dose: Not Given Hydromorphone HCl (Dilaudid) 0.25 mg IVPUSH Q2H PRN PRN Reason: Pain (severe 7-10) Ceftriaxone Sodium 1 gm/ (Sodium Chloride) 100 mls @ 200 mls/hr IV ONETIME ONE Stop: 01/18/17 13:39 Last Admin: 01/18/17 13:18 Dose: 200 mls/hr Azithromycin 500 mg/ Sodium (Chloride) 250 mls @ 250 mls/hr IV ONETIME ONE Stop: 01/18/17 17:10 Last Admin: 01/18/17 17:23 Dose: 250 mls/hr Ceftriaxone Sodium 1 gm/ (Sodium Chloride) 100 mls @ 200 mls/hr IV Q24H [facility] Last Admin: 01/19/17 12:06 Dose: 200 mls/hr Labetalol HCl (Normodyne) 5 mg IVPUSH ONETIME ONE PRN Reason: Protocol Stop: 01/18/17 10:16 Last Admin: 01/18/17 10:27 Dose: 5 mg Labetalol HCl (Normodyne) 5 mg IVPUSH ONETIME ONE PRN Reason: Protocol Stop: 01/18/17 10:56 Last Admin: 01/18/17 10:55 Dose: 5 mg - Exam General: Alert, Oriented, Cooperative, No Acute Distress HEENT: Pupils Equal, Pupils Reactive, EOMI, Mucous Membr. Moist/[place] Neck: Supple, Trachea Midline Lungs: Clear to Auscultation, Normal Respiratory Effort, Decreased Breath Sounds. No: Rhonchi, Wheezing Cardiovascular: Regular Rate, Regular Rhythm, No Murmurs GI/Abdominal Exam: Normal Bowel Sounds, Soft, Non-Tender, No Organomegaly, No Distention, No Mass (Female) Exam: Deferred Back Exam: Normal Inspection, Decreased Range of Motion Extremities: Normal Inspection, Non-Tender, No Pedal Edema, Normal Capillary Refill Peripheral Pulses: 2+: Dorsalis Pedis (L), Dorsalis Pedis (R) Skin: Warm, Dry, Intact Neurological: No New Focal Deficit, Other (resting tremors and bradykinesia) Psy/Mental Status: Alert, Normal Affect, Normal Mood - Problem List Review Problem List Initiated/Reviewed/Updated: Yes - My Orders Last 24 Hours: My Active Orders 01/20/17 08:11 PT Evaluation and Treatment [CONS] Routine 01/20/17 08:12 OT Evaluation and Treatment [CONS] Routine 01/20/17 13:00 cefTRIAXone [Rocephin] 1 gm Dextrose 5% in Water 100 ml IV Q24H 01/20/17 13:37 RT Evaluate for Home Oxygen [RC] Click to Edit 01/20/17 18:24 Head wo Cont [CT] Stat 01/21/17 05:11 BMP [BASIC METABOLIC PANEL,BMP] [CHEM] AM CBC WITH AUTO DIFF [HEME] AM CRP [C-REACTIVE PROTEIN] [CHEM] AM MG [MAGNESIUM] [CHEM] AM 01/22/17 05:11 BMP [BASIC METABOLIC PANEL,BMP] [CHEM] AM CBC WITH AUTO DIFF [HEME] AM CRP [C-REACTIVE PROTEIN] [CHEM] AM MG [MAGNESIUM] [CHEM] AM 01/23/17 05:11 CRP [C-REACTIVE PROTEIN] [CHEM] AM - Plan Plan:: Assessment/Plan: Acute: Bronchitis, Improved - CXR report done 01/18/2017 reads bronchial lower lobe thickening; no infiltrate or consolidations - She has cough but w/o fever - Pneumonia is unlikely due to lack of fever or increased, colored sputum production and clear, but diminished BS on auscultation - Mycoplasma serum IgM is negative / Sputum for Cx and sensitivity-has not been collected yet - She was on 1LNC this AM with SpO2 ~94-95%, D/C O2 if SpO2 on RA is >90%, - Possible home O2 eval needed if SpO2 <90% on RA Malignant HTN, Improved - Has hx/o HTN - Blood pressure readings of 199/94 and 197/96 mmHg on admission --> 121/57 this AM - Resume Home BP Meds - PRN anti-hypertensive medications for BP > 140/90 - Will add low dose Clonidine if needed - Continue to monitor Mild Hypernatremia, Improved - NA 148--> 146 - She is on psychotropic meds - Continue to monitor S/p Status Post Fall - Non-traumatic - She is not on blood thinners - 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 - All imaging studies are negative: Right Hip XR, Head CT and Cervical CT scan - Fall Precautions - PT/OT for eval - she requires 2 person assist Chronic: Hypertension Hyperlipidemia GERD Myasthenia gravis Osteoarthritis Malaise and Fatigue Bone and cartilage disorder Shortness of breath Magnesium metabolism disorder Hyperhidrosis Restless leg syndrome Anxiety Depression Paralysis Agitans/Parkinson's Disease Plan: She remains clinically stable Continue current treatment Routine AM Labs, if not d/c'd home today Continue PT/OT RT consult for possible Home O2 set-up Aspiration/Fall Precautions CM/SW for d/c planning Additional orders as above Code status: DNR/DNI Patient may not be safe to go back to [facility]. Recommend Rehab/SNF placement , she requires 2 person assist.
[2017-01-20] MEDS: hydrALAZINE 20 MG/ML SDV IVPUSH PRN (12:36)
[2017-01-20] MEDS ORDERED: cefTRIAXone 1 GM in Dextrose 5% in Water 100 ML IV SCH ×2 (13:00)
[2017-01-20] MEDS: Azithromycin 500 MG in Sodium Chloride 0.9% 250 ML IV SCH (15:01)
[2017-01-20] MEDS: ClonazePAM 0.5 MG Tab PO SCH (17:59)
[2017-01-20] MEDS ORDERED: Sodium Chloride 0.9% 10 ML Syringe FLUSH PRN (18:32)
--- NOTE | 2017-01-20 19:38 | CT ---
Head CT Technique: Multiple axial sections through the brain were obtained. Intravenous contrast was not utilized. Comparison: Prior head CT study of 01/18/17. Findings: Ventricles along with basal cisterns and sulci over the convexities are mildly prominent. Minimal diminished density is noted within the periventricular and subcortical white matter compatible with small vessel ischemic demyelination change. No other abnormal parenchymal densities are seen. No evidence of intracranial hemorrhage. No midline shift or mass effect is seen. Bone window settings were reviewed which shows no acute calvarial abnormality. Visualized sinuses are clear. Impression: 1. Mild senescent change. No acute intracranial abnormality is appreciated at this time. No significant change is seen from prior noncontrast head CT study. Diagnostic code #2
[2017-01-20] MEDS: Donepezil 10 MG Tab PO SCH (22:23)
[2017-01-20] MEDS: Simvastatin 10 MG Tab PO SCH (22:25)
[2017-01-20] MEDS: QUEtiapine 25 MG Tab PO SCH (22:26)
[2017-01-21] MEDS: Carbidopa/Levodopa 25-100 MG Tab.ER PO SCH ×4 (02:44→20:35)
[2017-01-21] MEDS: Carbidopa/Levodopa 25-100 MG Tab PO SCH ×2 (06:25→16:25)
[2017-01-21] MEDS: Saccharomyces Boulardii (Probiotic) 250 MG Cap PO SCH ×2 (09:19→20:33)
[2017-01-21] MEDS: Acetaminophen 325 MG Tab PO SCH ×2 (09:20→20:36)
[2017-01-21] MEDS: Cyanocobalamin (Vitamin B12) 1,000 MCG Tab PO SCH (09:20)
[2017-01-21] MEDS: rOPINIRole 1 MG Tab PO SCH ×2 (09:21→20:33)
[2017-01-21] MEDS: Aspirin 81 MG Tab.EC PO SCH (09:22)
[2017-01-21] MEDS: Calcium Carbonate 500 MG Tab.Chew PO SCH (09:22)
[2017-01-21] MEDS: Enalapril 5 MG Tab PO SCH (09:22)
[2017-01-21] MEDS: Cholecalciferol (Vitamin D3) 1,000 Unit Tab PO SCH ×2 (09:23→20:35)
[2017-01-21] MEDS: Oxybutynin 5 MG Tab PO SCH ×2 (09:24→20:35)
[2017-01-21] MEDS: Memantine 10 MG Tab PO SCH ×2 (09:25→20:33)
[2017-01-21] MEDS: Gabapentin 100 MG Cap PO SCH ×3 (09:25→20:36)
[2017-01-21] MEDS: Simethicone 80 MG Tab.Chew PO SCH ×4 (09:25→20:33)
[2017-01-21] MEDS: Sertraline 50 MG Tab PO SCH (09:26)
[2017-01-21] MEDS: Sennosides 8.6 MG Tab PO SCH ×2 (09:27→20:33)
[2017-01-21] MEDS: Metoprolol Tartrate 25 MG Tab PO SCH ×2 (09:27→20:35)
[2017-01-21] MEDS: Polyethylene Glycol 3350 Powder 17 GM Packet PO SCH (09:28)
[2017-01-21] MEDS: Pantoprazole 40 MG Tab.CR PO SCH (11:16)
[2017-01-21] MEDS: Aluminum Hydroxide/Magnesium Hydroxide/Simethicone Susp 30 ML Cup PO SCH (11:16)
--- NOTE | 2017-01-21 13:03 | PCM.PN ---
<Norma Liu - Last Filed: 01/21/17 13:03> - General Info Date of Service: 01/21/17 Admission Dx/Problem (Free Text): Admission Diagnosis/Problem Admission Diagnosis/Problem Pneumonia Subjective Update: Follow Up Functional Status: Reports: Pain Controlled, Tolerating Diet, Ambulating, Urinating. Denies: New Symptoms - Review of Systems General: Denies: Fever, Fatigue, Chills HEENT: Denies: Dysphasia, Headaches, Visual Changes Pulmonary: Denies: Shortness of Breath, Cough, Wheezing Cardiovascular: Denies: Chest Pain, Palpitations, Edema Gastrointestinal: Denies: Abdominal Pain, Constipation, Diarrhea, Hematochezia, Nausea, Vomiting Genitourinary: Denies: Dysuria Musculoskeletal: Reports: Back Pain (left sacral/hip area) Skin: Reports: No Symptoms Neurological: Reports: Pre-Existing Deficit (hx/o Parkinson's), Gait Disturbance (parkinsonian gait). Denies: Headache, Numbness, Tingling Psychiatric: Denies: Confusion, Depression, Anxiety Systems Review Comment:: Pleasant 86yoF, not complaining of any pain, and is generally comfortable. Daughter is present in room, they were concerned about going home to [facility] (assisted living) vs. placement in SNF. Pt and daughter amenable to either plan, depending on the pt's needs at this time. - Patient Data Vitals - Most Recent: Last Vital Signs Temp 98.2 F 01/21/17 12:47 Pulse 55 L 01/21/17 12:47 Resp 16 01/21/17 12:47 BP 118/52 L 01/21/17 12:47 Pulse Ox 91 L 01/21/17 12:47 Weight - Most Recent: 69.853 kg I&O - Last 24 Hours: Intake & Output 01/20/17 01/21/17 01/21/17 22:59 06:59 14:59 Intake Total 1450 200 Output Total 450 Balance 1450 -250 Lab Results Last 24 Hours: Laboratory Results - last 24 hr 01/21/17 01/21/17 Range/Units 06:05 06:05 WBC 5.31 (3.98-10.04) K/mm3 RBC 4.01 (3.98-5.22) M/mm3 Hgb 12.6 (11.2-15.7) gm/L Hct 38.4 (34.1-44.9) % MCV 95.8 H (79.4-94.8) fl MCH 31.4 (25.6-32.2) pg MCHC 32.8 (32.2-35.5) g/dl RDW Std Deviation 50.7 H (36.4-46.3) fL Plt Count 121 L (182-369) K/mm3 MPV 10.6 (9.4-12.3) fl Neut % (Auto) 51.8 (34.0-71.1) % Lymph % (Auto) 28.6 (19.3-51.7) % [place] % (Auto) 9.8 (4.7-12.5) % Eos % (Auto) 9.0 H (0.7-5.8) Baso % (Auto) 0.4 (0.1-1.2) % Neut # (Auto) 2.75 (1.56-6.13) K/mm3 Lymph # (Auto) 1.52 (1.18-3.74) K/mm3 [place] # (Auto) 0.52 H (0.24-0.36) K/mm3 Eos # (Auto) 0.48 H (0.04-0.36) K/mm3 Baso # (Auto) 0.02 (0.01-0.08) K/mm3 Sodium 146 H (136-145) mEq/L Potassium 3.9 (3.5-5.1) mEq/L Chloride 110 H (98-107) mEq/L Carbon Dioxide 24 (21-32) mEq/L Anion Gap 15.9 H (5-15) BUN 31 H (7-18) mg/dL Creatinine 0.9 (0.55-1.02) mg/dL Est Cr Clr Drug Dosing 41.87 mL/min Estimated GFR (MDRD) 60 (>60) mL/min BUN/Creatinine Ratio 34.4 H (14-18) Glucose 98 (83-115) mg/dL Calcium 8.9 (8.5-10.1) mg/dL Magnesium 2.1 (1.8-2.4) mg/dl C-Reactive Protein 1.5 H* (<1.0) mg/dL Med Orders - Current: Current Medications Acetaminophen (Tylenol) 650 mg PO Q4H PRN PRN Reason: Pain Acetaminophen (Tylenol) 650 mg PO BID [facility] Last Admin: 01/21/17 09:20 Dose: 650 mg Hydrocodone Bitart/Acetaminophen (Udell 325-5 Mg) 1 tab PO Q4H PRN PRN Reason: Pain (moderate 4-6) Al Hydroxide/Mg Hydroxide (Mag-Al Plus) 10 ml PO DAILY [facility] Last Admin: 01/21/17 11:16 Dose: Not Given Albuterol/Ipratropium (Duoneb 3.0-0.5 Mg/3 Ml) 3 ml NEB Q4H PRN PRN Reason: Shortness Of Breath/wheezing Aspirin (Halfprin) 81 mg PO DAILY [facility] Last Admin: 01/21/17 09:22 Dose: 81 mg Bisacodyl (Dulcolax) 5 mg PO DAILY PRN PRN Reason: Constipation Calcium Carbonate/Glycine (Tums) 500 mg PO DAILY [facility] Last Admin: 01/21/17 09:22 Dose: 500 mg Calcium Carbonate/Glycine (Tums) 500 mg PO DAILY PRN PRN Reason: Heartburn Carbidopa/Levodopa (Sinemet Cr 25-100 Mg) 2 tab PO Q6H [facility] Last Admin: 01/21/17 09:24 Dose: 2 tab Carbidopa/Levodopa (Sinemet 25-100 Mg) 1 tab PO BIDAC [facility] Last Admin: 01/21/17 06:25 Dose: 1 tab Cholecalciferol (Vitamin D3) 1,000 units PO BID [facility] Last Admin: 01/21/17 09:23 Dose: 1,000 units Clonazepam (Klonopin) 0.5 mg PO QPM [facility] Last Admin: 01/20/17 17:59 Dose: 0.5 mg Cyanocobalamin (Vitamin B12) 1,000 mcg PO DAILY [facility] Last Admin: 01/21/17 09:20 Dose: 1,000 mcg Docusate Sodium (Colace) 100 mg PO BID PRN PRN Reason: Constipation Donepezil HCl (Aricept) 10 mg PO BEDTIME [facility] Last Admin: 01/20/17 22:23 Dose: 10 mg Enalapril Maleate (Vasotec) 5 mg PO DAILY [facility] Last Admin: 01/21/17 09:22 Dose: 5 mg Gabapentin (Neurontin) 200 mg PO TID [facility] Last Admin: 01/21/17 09:25 Dose: 200 mg Guaifenesin/Phenylephrine HCl (Robitussin Dm) 5 ml PO Q4H PRN PRN Reason: Cough Hydralazine HCl (Apresoline) 10 mg IVPUSH Q4H PRN PRN Reason: Hypertension Last Admin: 01/20/17 12:36 Dose: 10 mg Hydrocortisone (Hydrocortisone 1% Crm) 0 gm TOP BID PRN PRN Reason: Pain Hydromorphone HCl (Dilaudid) 0.25 mg IVPUSH Q2H PRN PRN Reason: Pain (severe 7-10) Lorazepam (Ativan) 0.5 mg IV Q6H PRN PRN Reason: Anxiety Magnesium Sulfate (Pharmacy To Dose - Magnesium Replacement) 0 dose .XX ASDIRECTED PRN PRN Reason: RX TO WATCH MAG LEVELS Memantine (Namenda) 10 mg PO BID [facility] Last Admin: 01/21/17 09:25 Dose: 10 mg Metoprolol Tartrate (Lopressor) 12.5 mg PO BID [facility] Last Admin: 01/21/17 09:27 Dose: 12.5 mg Metoprolol Tartrate (Lopressor) 5 mg IVPUSH Q4H PRN PRN Reason: Tachycardia Naproxen (Naprosyn) 375 mg PO BID [facility] Last Admin: 01/21/17 09:24 Dose: 375 mg Ondansetron HCl (Zofran) 4 mg IV Q6H PRN PRN Reason: Nausea/Vomiting Oxybutynin Chloride (Oxybutynin) 2.5 mg PO BID [facility] Last Admin: 01/21/17 09:24 Dose: 2.5 mg Pantoprazole Sodium (Protonix) 40 mg PO DAILY [facility] Last Admin: 01/21/17 11:16 Dose: 40 mg Polyethylene Glycol (Miralax) 17 gm PO DAILY PRN PRN Reason: Constipation Polyethylene Glycol (Miralax) 17 gm PO DAILY [facility] Last Admin: 01/21/17 09:28 Dose: 17 gm Potassium Chloride (Pharmacy To Dose - Potassium Replacement) 0 dose .XX ASDIRECTED PRN PRN Reason: RX TO WATCH K LEVELS Quetiapine Fumarate (Seroquel) 12.5 mg PO BEDTIME [facility] Last Admin: 01/20/17 22:26 Dose: 12.5 mg Ropinirole HCl (Requip) 4 mg PO BID [facility] Last Admin: 01/21/17 09:21 Dose: 4 mg Saccharomyces Boulardii (Florastor) 500 mg PO BID [facility] Last Admin: 01/21/17 09:19 Dose: 500 mg Senna (Senna) 8.6 mg PO BID [facility] Last Admin: 01/21/17 09:27 Dose: 8.6 mg Senna/Docusate Sodium (Senna Plus) 1 tab PO BID PRN PRN Reason: Constipation Sertraline HCl (Zoloft) 75 mg PO DAILY [facility] Last Admin: 01/21/17 09:26 Dose: 75 mg Simethicone (Simethicone) 80 mg PO QID [facility] Last Admin: 01/21/17 09:25 Dose: 80 mg Simvastatin (Zocor) 10 mg PO BEDTIME [facility] Last Admin: 01/20/17 22:25 Dose: 10 mg Sodium Chloride (Saline Flush) 10 ml FLUSH ASDIRECTED PRN PRN Reason: Keep Vein Open Temazepam (Restoril) 7.5 mg PO BEDTIME PRN PRN Reason: Sleep Discontinued Medications Acetaminophen (Tylenol) 650 mg PO NOW ONE Stop: 01/18/17 13:36 Last Admin: 01/18/17 13:39 Dose: 650 mg Carbidopa/Levodopa (Sinemet 25-100 Mg) 1 tab PO DAILY@0600 [facility] Last Admin: 01/19/17 05:31 Dose: 1 tab Ceftriaxone Sodium (Rocephin) 1,000 mg IVPUSH Q24H [facility] Last Admin: 01/18/17 13:22 Dose: Not Given Hydromorphone HCl (Dilaudid) 0.25 mg IVPUSH Q2H PRN PRN Reason: Pain (severe 7-10) Ceftriaxone Sodium 1 gm/ (Sodium Chloride) 100 mls @ 200 mls/hr IV ONETIME ONE Stop: 01/18/17 13:39 Last Admin: 01/18/17 13:18 Dose: 200 mls/hr Azithromycin 500 mg/ Sodium (Chloride) 250 mls @ 250 mls/hr IV ONETIME ONE Stop: 01/18/17 17:10 Last Admin: 01/18/17 17:23 Dose: 250 mls/hr Azithromycin 500 mg/ Sodium (Chloride) 250 mls @ 250 mls/hr IV Q24H [facility] Last Admin: 01/20/17 15:01 Dose: 250 mls/hr Ceftriaxone Sodium 1 gm/ (Sodium Chloride) 100 mls @ 200 mls/hr IV Q24H [facility] Last Admin: 01/19/17 12:06 Dose: 200 mls/hr Ceftriaxone Sodium 1 gm/ (Dextrose/Water) 100 mls @ 200 mls/hr IV Q24H [facility] Last Admin: 01/20/17 12:36 Dose: 200 mls/hr Labetalol HCl (Normodyne) 5 mg IVPUSH ONETIME ONE PRN Reason: Protocol Stop: 01/18/17 10:16 Last Admin: 01/18/17 10:27 Dose: 5 mg Labetalol HCl (Normodyne) 5 mg IVPUSH ONETIME ONE PRN Reason: Protocol Stop: 01/18/17 10:56 Last Admin: 01/18/17 10:55 Dose: 5 mg - Exam General: Alert, Oriented, Cooperative, No Acute Distress HEENT: Pupils Equal, Pupils Reactive, EOMI, Mucous Membr. Moist/[place] Neck: Supple, Trachea Midline Lungs: Clear to Auscultation, Normal Respiratory Effort. No: Rhonchi, Wheezing Cardiovascular: Regular Rate. No: No Murmurs GI/Abdominal Exam: Normal Bowel Sounds, Soft, Non-Tender, No Organomegaly, No Distention, No Mass (Female) Exam: Deferred Back Exam: Normal Inspection Extremities: Normal Inspection, Non-Tender, No Pedal Edema, Normal Capillary Refill Peripheral Pulses: 2+: Radial (L), Radial (R), Dorsalis Pedis (L), Dorsalis Pedis (R) Skin: Warm, Dry, Intact Neurological: No New Focal Deficit Psy/Mental Status: Alert, Normal Affect, Normal Mood Physical Findings Comments:: Pt with parkinson disease, there are some parkinsonian movements of legs on examination. - Problem List Review Problem List Initiated/Reviewed/Updated: Yes - Plan Plan:: Assessment/Plan: Acute: Bronchitis, Improved - CXR report done 01/18/2017 reads bronchial lower lobe thickening; no infiltrate or consolidations - She has cough but w/o fever - Pneumonia is unlikely due to lack of fever or increased, colored sputum production and clear, but diminished BS on auscultation - Mycoplasma serum IgM is negative / Sputum for Cx and sensitivity-has not been collected yet Malignant HTN, Improved - Has hx/o HTN - Blood pressure readings of 199/94 and 197/96 mmHg on admission --> 121/57 this AM - Resume Home BP Meds - PRN anti-hypertensive medications for BP > 140/90 - Continue to monitor Mild Hypernatremia, Improved - NA 148--> 146 - She is on psychotropic meds - Continue to monitor S/p Status Post Fall - Non-traumatic - She is not on blood thinners - 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 - All imaging studies are negative: Right Hip XR, Head CT and Cervical CT scan - Fall Precautions - PT/OT for eval - she requires 1-2 person assist due to Parkinson's progression Chronic: Hypertension Hyperlipidemia GERD Myasthenia gravis Osteoarthritis Malaise and Fatigue Bone and cartilage disorder Shortness of breath Magnesium metabolism disorder Hyperhidrosis Restless leg syndrome Anxiety Depression Paralysis Agitans/Parkinson's Disease Plan: She remains clinically stable Continue current treatment Routine AM Labs Continue PT/OT Aspiration/Fall Precautions CM/SW for d/c planning Additional orders as above Code status: DNR/DNI [facility] has declined her return to their facility. Pt will need Rehab/SNF placement, she requires 2 person assist. - see PT notes Plan to D/C to SNF after they have evaluated the patient. <Tolu Ellis T - Last Filed: 01/21/17 22:39> - General Info Functional Status: Reports: Pain Controlled, Tolerating Diet, Ambulating, Urinating. Denies: New Symptoms - Review of Systems General: Reports: Weakness. Denies: Fever, Fatigue, Chills HEENT: Denies: Dysphasia, Headaches, Visual Changes Pulmonary: Denies: Shortness of Breath, Wheezing Cardiovascular: Denies: Chest Pain, Palpitations, Edema Gastrointestinal: Denies: Abdominal Pain, Nausea, Vomiting Genitourinary: Reports: No Symptoms Skin: Reports: No Symptoms Neurological: Reports: Pre-Existing Deficit, Weakness, Gait Disturbance Psychiatric: Denies: Confusion, Depression, Anxiety, Hallucinations Systems Review Comment:: No significant overnight or acute issues. She is about the same from yesterday. Her labs are fairly stable. She has no new complaints. - Patient Data Vitals - Most Recent: Last Vital Signs Temp 36.2 C 01/21/17 19:37 Pulse 65 01/21/17 20:35 Resp 14 01/21/17 19:37 BP 118/78 01/21/17 20:35 Pulse Ox 96 01/21/17 19:37 I&O - Last 24 Hours: Intake & Output 01/21/17 01/21/17 01/21/17 06:59 14:59 22:59 Intake Total 200 163 Output Total 450 200 Balance -250 163 -200 Lab Results Last 24 Hours: Laboratory Results - last 24 hr 01/21/17 01/21/17 Range/Units 06:05 06:05 WBC 5.31 (3.98-10.04) K/mm3 RBC 4.01 (3.98-5.22) M/mm3 Hgb 12.6 (11.2-15.7) gm/L Hct 38.4 (34.1-44.9) % MCV 95.8 H (79.4-94.8) fl MCH 31.4 (25.6-32.2) pg MCHC 32.8 (32.2-35.5) g/dl RDW Std Deviation 50.7 H (36.4-46.3) fL Plt Count 121 L (182-369) K/mm3 MPV 10.6 (9.4-12.3) fl Neut % (Auto) 51.8 (34.0-71.1) % Lymph % (Auto) 28.6 (19.3-51.7) % [place] % (Auto) 9.8 (4.7-12.5) % Eos % (Auto) 9.0 H (0.7-5.8) Baso % (Auto) 0.4 (0.1-1.2) % Neut # (Auto) 2.75 (1.56-6.13) K/mm3 Lymph # (Auto) 1.52 (1.18-3.74) K/mm3 [place] # (Auto) 0.52 H (0.24-0.36) K/mm3 Eos # (Auto) 0.48 H (0.04-0.36) K/mm3 Baso # (Auto) 0.02 (0.01-0.08) K/mm3 Sodium 146 H (136-145) mEq/L Potassium 3.9 (3.5-5.1) mEq/L Chloride 110 H (98-107) mEq/L Carbon Dioxide 24 (21-32) mEq/L Anion Gap 15.9 H (5-15) BUN 31 H (7-18) mg/dL Creatinine 0.9 (0.55-1.02) mg/dL Est Cr Clr Drug Dosing 41.87 mL/min Estimated GFR (MDRD) 60 (>60) mL/min BUN/Creatinine Ratio 34.4 H (14-18) Glucose 98 (83-115) mg/dL Calcium 8.9 (8.5-10.1) mg/dL Magnesium 2.1 (1.8-2.4) mg/dl C-Reactive Protein 1.5 H* (<1.0) mg/dL Med Orders - Current: Current Medications Acetaminophen (Tylenol) 650 mg PO Q4H PRN PRN Reason: Pain Acetaminophen (Tylenol) 650 mg PO BID [facility] Last Admin: 01/21/17 20:36 Dose: 650 mg Hydrocodone Bitart/Acetaminophen (Udell 325-5 Mg) 1 tab PO Q4H PRN PRN Reason: Pain (moderate 4-6) Al Hydroxide/Mg Hydroxide (Mag-Al Plus) 10 ml PO DAILY [facility] Last Admin: 01/21/17 11:16 Dose: Not Given Albuterol/Ipratropium (Duoneb 3.0-0.5 Mg/3 Ml) 3 ml NEB Q4H PRN PRN Reason: Shortness Of Breath/wheezing Aspirin (Halfprin) 81 mg PO DAILY [facility] Last Admin: 01/21/17 09:22 Dose: 81 mg Bisacodyl (Dulcolax) 5 mg PO DAILY PRN PRN Reason: Constipation Calcium Carbonate/Glycine (Tums) 500 mg PO DAILY [facility] Last Admin: 01/21/17 09:22 Dose: 500 mg Calcium Carbonate/Glycine (Tums) 500 mg PO DAILY PRN PRN Reason: Heartburn Carbidopa/Levodopa (Sinemet Cr 25-100 Mg) 2 tab PO Q6H [facility] Last Admin: 01/21/17 20:35 Dose: 2 tab Carbidopa/Levodopa (Sinemet 25-100 Mg) 1 tab PO BIDAC [facility] Last Admin: 01/21/17 16:25 Dose: 1 tab Cholecalciferol (Vitamin D3) 1,000 units PO BID [facility] Last Admin: 01/21/17 20:35 Dose: 1,000 units Clonazepam (Klonopin) 0.5 mg PO QPM [facility] Last Admin: 01/21/17 17:43 Dose: 0.5 mg Cyanocobalamin (Vitamin B12) 1,000 mcg PO DAILY [facility] Last Admin: 01/21/17 09:20 Dose: 1,000 mcg Docusate Sodium (Colace) 100 mg PO BID PRN PRN Reason: Constipation Donepezil HCl (Aricept) 10 mg PO BEDTIME [facility] Last Admin: 01/21/17 20:34 Dose: 10 mg Enalapril Maleate (Vasotec) 5 mg PO DAILY [facility] Last Admin: 01/21/17 09:22 Dose: 5 mg Gabapentin (Neurontin) 200 mg PO TID [facility] Last Admin: 01/21/17 20:36 Dose: 200 mg Guaifenesin/Phenylephrine HCl (Robitussin Dm) 5 ml PO Q4H PRN PRN Reason: Cough Hydralazine HCl (Apresoline) 10 mg IVPUSH Q4H PRN PRN Reason: Hypertension Last Admin: 01/20/17 12:36 Dose: 10 mg Hydrocortisone (Hydrocortisone 1% Crm) 0 gm TOP BID PRN PRN Reason: Pain Hydromorphone HCl (Dilaudid) 0.25 mg IVPUSH Q2H PRN PRN Reason: Pain (severe 7-10) Lorazepam (Ativan) 0.5 mg IV Q6H PRN PRN Reason: Anxiety Magnesium Sulfate (Pharmacy To Dose - Magnesium Replacement) 0 dose .XX ASDIRECTED PRN PRN Reason: RX TO WATCH MAG LEVELS Memantine (Namenda) 10 mg PO BID [facility] Last Admin: 01/21/17 20:33 Dose: 10 mg Metoprolol Tartrate (Lopressor) 12.5 mg PO BID [facility] Last Admin: 01/21/17 20:35 Dose: 12.5 mg Metoprolol Tartrate (Lopressor) 5 mg IVPUSH Q4H PRN PRN Reason: Tachycardia Naproxen (Naprosyn) 375 mg PO BID [facility] Last Admin: 01/21/17 20:35 Dose: 375 mg Ondansetron HCl (Zofran) 4 mg IV Q6H PRN PRN Reason: Nausea/Vomiting Oxybutynin Chloride (Oxybutynin) 2.5 mg PO BID [facility] Last Admin: 01/21/17 20:35 Dose: 2.5 mg Pantoprazole Sodium (Protonix) 40 mg PO DAILY [facility] Last Admin: 01/21/17 11:16 Dose: 40 mg Polyethylene Glycol (Miralax) 17 gm PO DAILY PRN PRN Reason: Constipation Polyethylene Glycol (Miralax) 17 gm PO DAILY [facility] Last Admin: 01/21/17 09:28 Dose: 17 gm Potassium Chloride (Pharmacy To Dose - Potassium Replacement) 0 dose .XX ASDIRECTED PRN PRN Reason: RX TO WATCH K LEVELS Quetiapine Fumarate (Seroquel) 12.5 mg PO BEDTIME [facility] Last Admin: 01/21/17 20:35 Dose: 12.5 mg Ropinirole HCl (Requip) 4 mg PO BID [facility] Last Admin: 01/21/17 20:33 Dose: 4 mg Saccharomyces Boulardii (Florastor) 500 mg PO BID [facility] Last Admin: 01/21/17 20:33 Dose: 500 mg Senna (Senna) 8.6 mg PO BID [facility] Last Admin: 01/21/17 20:33 Dose: 8.6 mg Senna/Docusate Sodium (Senna Plus) 1 tab PO BID PRN PRN Reason: Constipation Sertraline HCl (Zoloft) 75 mg PO DAILY [facility] Last Admin: 01/21/17 09:26 Dose: 75 mg Simethicone (Simethicone) 80 mg PO QID [facility] Last Admin: 01/21/17 20:33 Dose: 80 mg Simvastatin (Zocor) 10 mg PO BEDTIME [facility] Last Admin: 01/21/17 20:33 Dose: 10 mg Sodium Chloride (Saline Flush) 10 ml FLUSH ASDIRECTED PRN PRN Reason: Keep Vein Open Temazepam (Restoril) 7.5 mg PO BEDTIME PRN PRN Reason: Sleep Discontinued Medications Acetaminophen (Tylenol) 650 mg PO NOW ONE Stop: 01/18/17 13:36 Last Admin: 01/18/17 13:39 Dose: 650 mg Carbidopa/Levodopa (Sinemet 25-100 Mg) 1 tab PO DAILY@0600 [facility] Last Admin: 01/19/17 05:31 Dose: 1 tab Ceftriaxone Sodium (Rocephin) 1,000 mg IVPUSH Q24H [facility] Last Admin: 01/18/17 13:22 Dose: Not Given Hydromorphone HCl (Dilaudid) 0.25 mg IVPUSH Q2H PRN PRN Reason: Pain (severe 7-10) Ceftriaxone Sodium 1 gm/ (Sodium Chloride) 100 mls @ 200 mls/hr IV ONETIME ONE Stop: 01/18/17 13:39 Last Admin: 01/18/17 13:18 Dose: 200 mls/hr Azithromycin 500 mg/ Sodium (Chloride) 250 mls @ 250 mls/hr IV ONETIME ONE Stop: 01/18/17 17:10 Last Admin: 01/18/17 17:23 Dose: 250 mls/hr Azithromycin 500 mg/ Sodium (Chloride) 250 mls @ 250 mls/hr IV Q24H [facility] Last Admin: 01/20/17 15:01 Dose: 250 mls/hr Ceftriaxone Sodium 1 gm/ (Sodium Chloride) 100 mls @ 200 mls/hr IV Q24H [facility] Last Admin: 01/19/17 12:06 Dose: 200 mls/hr Ceftriaxone Sodium 1 gm/ (Dextrose/Water) 100 mls @ 200 mls/hr IV Q24H [facility] Last Admin: 01/20/17 12:36 Dose: 200 mls/hr Labetalol HCl (Normodyne) 5 mg IVPUSH ONETIME ONE PRN Reason: Protocol Stop: 01/18/17 10:16 Last Admin: 01/18/17 10:27 Dose: 5 mg Labetalol HCl (Normodyne) 5 mg IVPUSH ONETIME ONE PRN Reason: Protocol Stop: 01/18/17 10:56 Last Admin: 01/18/17 10:55 Dose: 5 mg - Exam General: Alert, Oriented, Cooperative, No Acute Distress HEENT: Pupils Equal, Pupils Reactive, EOMI Neck: Supple, Trachea Midline Lungs: Clear to Auscultation, Normal Respiratory Effort Cardiovascular: Regular Rate, Regular Rhythm GI/Abdominal Exam: Normal Bowel Sounds, Non-Tender, No Organomegaly, No Distention, No Mass (Female) Exam: Deferred Back Exam: Normal Inspection, Decreased Range of Motion Extremities: Normal Inspection, Non-Tender, No Pedal Edema, Normal Capillary Refill Peripheral Pulses: 2+: Dorsalis Pedis (L), Dorsalis Pedis (R) Skin: Warm, Dry, Intact Neurological: No New Focal Deficit Psy/Mental Status: Alert, Normal Mood. No: Normal Affect - Problem List Review Problem List Initiated/Reviewed/Updated: Yes - My Orders Last 24 Hours: My Active Orders 01/22/17 05:11 BMP [BASIC METABOLIC PANEL,BMP] [CHEM] AM CBC WITH AUTO DIFF [HEME] AM CRP [C-REACTIVE PROTEIN] [CHEM] AM MG [MAGNESIUM] [CHEM] AM 01/23/17 05:11 CRP [C-REACTIVE PROTEIN] [CHEM] AM - Plan Plan:: Assessment/Plan: Acute: Paralysis Agitans/Parkinson's Disease - Likely worsening at this point - Continue current treatment Mild Hypernatremia, Stable - NA 148--> 146 - She is on psychotropic meds - Continue to monitor S/p Status Post Fall - Non-traumatic - She is not on blood thinners - 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 - All imaging studies are negative: Right Hip XR, Head CT and Cervical CT scan - Fall Precautions - PT/OT for eval - she requires 1-2 person assist due to Parkinson's progression Bronchitis, Improved - CXR report done 01/18/2017 reads bronchial lower lobe thickening; no infiltrate or consolidations - She has cough but w/o fever - Pneumonia is unlikely due to lack of fever or increased, colored sputum production and clear, but diminished BS on auscultation - Mycoplasma serum IgM is negative / Sputum for Cx and sensitivity-has not been collected yet - Discontinue IV ATB today Resolved: Malignant HTN - Has hx/o HTN - Blood pressure readings of 199/94 and 197/96 mmHg on admission --> 121/57 this AM - Resume Home BP Meds - PRN anti-hypertensive medications for BP > 140/90 - Continue to monitor Chronic: Hypertension Hyperlipidemia GERD Myasthenia gravis Osteoarthritis Malaise and Fatigue Bone and cartilage disorder Shortness of breath Magnesium metabolism disorder Hyperhidrosis Restless leg syndrome Anxiety Depression Plan: She remains clinically stable Continue current treatment Routine AM Labs Continue PT/OT Aspiration/Fall Precautions CM/SW for d/c planning Additional orders as above Code status: DNR/DNI [facility] has declined her return to their facility. Pt will need Rehab/SNF placement, she requires 2 person assist. - see PT notes Plan to D/C to SNF after they have evaluated the patient. LOS anticipate > 96 hrs for SNF/Rehab placement.
[2017-01-21] MEDS: ClonazePAM 0.5 MG Tab PO SCH (17:43)
[2017-01-21] MEDS: Simvastatin 10 MG Tab PO SCH (20:33)
[2017-01-21] MEDS: Donepezil 10 MG Tab PO SCH (20:34)
[2017-01-21] MEDS: QUEtiapine 25 MG Tab PO SCH (20:35)
[2017-01-22] MEDS: Carbidopa/Levodopa 25-100 MG Tab.ER PO SCH ×2 (02:31→09:49)
[2017-01-22] MEDS: Carbidopa/Levodopa 25-100 MG Tab PO SCH (06:54)
--- NOTE | 2017-01-22 08:44 | PCM.DCSUM1 ---
Discharge Summary - Hospital Course Brief History: This is an 86-year-old elderly white female with past medical history of Hypertension, Hyperlipidemia, GERD, Myasthenia Gravis, Osteoarthritis , Chronic Malaise and Fatigue, Bone and Cartilage disorder, Shortness of Breath , Magnesium Metabolism Disorder, Hyperhidrosis, Restless Leg Syndrome, Anxiety, Depression, and Paralysis Agitans/Parkinson's Disease who presents to emergency department for evaluation after suffering a non traumatic fall at her assisted living facility. She was admitted for hypoxemia due to bronchitis. - Discharge Data Discharge Date: 01/22/17 Discharge Disposition: Home, Self-Care 01 Condition: Good - Discharge Diagnosis/Problem(s) (1) Parkinson's disease (tremor, stiffness, slow motion, unstable posture) SNOMED Code(s): 80009005 ICD Code: G20 - PARKINSON'S DISEASE Status: Chronic (2) Bronchitis SNOMED Code(s): 03733232 ICD Code: J40 - BRONCHITIS, NOT SPECIFIED ACUTE OR CHRONIC Status: Resolved (3) Fall SNOMED Code(s): 1914156 ICD Code: W19.XXXA - UNSPECIFIED FALL, INITIAL ENCOUNTER Status: Resolved Qualifiers: Encounter type: initial encounter Qualified Code(s): W19.XXXA - Unspecified fall, initial encounter (4) Hypernatremia SNOMED Code(s): 78098377 ICD Code: E87.0 - HYPEROSMOLALITY AND HYPERNATREMIA Status: Resolved (5) Malignant hypertension SNOMED Code(s): 18993096 ICD Code: I10 - ESSENTIAL (PRIMARY) HYPERTENSION Status: Resolved (6) Hypoxemia requiring supplemental oxygen SNOMED Code(s): 322157099 ICD Code: R09.02 - HYPOXEMIA; Z99.81 - DEPENDENCE ON SUPPLEMENTAL OXYGEN Status: Resolved (7) At high risk for injury related to fall SNOMED Code(s): 958888856 ICD Code: Z91.89 - OTH PERSONAL RISK FACTORS, NOT ELSEWHERE CLASSIFIED Status: Chronic - Patient Summary/Data Operative Procedure(s) Performed: None Complications: None Consults: Consultations 01/20/17 08:11 PT Evaluation and Treatment [CONS] Routine 01/20/17 08:12 OT Evaluation and Treatment [CONS] Routine Labs Pending at D/C: None Recommended Follow-up Testing/Procedures: None Planned Operative Procedure(s) after DC: None Hospital Course: Patient was primarily admitted for evaluation of recent fall. All workup related to the fall to include imaging studies were benign. However she was found to be hypoxemic with a finding of bronchitis on chest x-ray. Patient received respiratory care, supplemental O2, antibiotics and bronchodilators to improve her symptom. The patient slowly improved on this regimen. The rest of her presenting illness immediately resolved with further treatment and supportive care. Her hospital course was uncomplicated. However she was requiring more assistance with mobility and ambulation from baseline and therefore we recommended placement for rehabilitation or retirement facility. Her family understood her Parkinson's disease was progressing and she could be very well nearing end stage at this point. Patient will be discharged to [facility] sometime today once transportation arrives. She is high risk fall and aspiration due to her advanced Parkinson's Disease. On the day of discharge, Dr. Broderick was called and updated regarding discharge care plans. - Patient Instructions Diet: Usual Diet as Tolerated Activity: As Tolerated Driving: Do Not Drive Showering/Bathing: May Shower Notify Provider of: Fever, Increased Pain, Nausea and/or Vomiting Other/Special Instructions: - Please resume all home medications. - You are high fall risk. - Call or follow up with your family doctor right after discharge for any questions or concerns - Discharge Plan Home Medications: Home Meds Acetaminophen 650 mg PO BID 09/07/14 [History] Acetaminophen 650 mg PO Q4H PRN 09/07/14 [History] Carbidopa/Levodopa [Sinemet 25-100 mg] 1 tab PO BID 09/07/14 [History] Carbidopa/Levodopa [Sinemet Cr 50-200 mg] 1 tab PO QID 09/07/14 [History] Docusate Sodium 100 mg PO BID 09/07/14 [History] Memantine HCl [Namenda Xr] 28 mg PO DAILY 09/07/14 [History] Metoprolol Tartrate 12.5 mg PO BID 09/07/14 [History] Omeprazole [Prilosec] 20 mg PO DAILY 09/07/14 [History] Sertraline HCl [Zoloft] 75 mg PO DAILY 09/07/14 [History] Simethicone [Gas-X] 80 mg PO WITHMEALSANDBED 09/07/14 [History] clonazePAM [Klonopin] 0.5 mg PO BEDTIME 09/07/14 [History] rOPINIRole HCl [Requip] 4 mg PO BID 09/07/14 [History] Aspirin [Adult Low Dose Aspirin EC] 81 mg PO DAILY 10/02/15 [History] Cholecalciferol (Vitamin D3) [Vitamin D3] 1,000 unit PO BID 10/02/15 [History] [place]-3/DHA/Epa/Fish Oil [Fish Oil 1,000 mg Softgel] 1,000 mg PO BID 10/02/15 [ History] Sennosides [Senna] 1 tab PO BID 10/02/15 [History] Calcium Carbonate [Calcium] 500 mg PO DAILY 01/18/17 [History] Cyanocobalamin (Vitamin B12) [Vitamin B12] 1,000 mcg PO DAILY 01/18/17 [History] Donepezil [Aricept] 10 mg PO BEDTIME 01/18/17 [History] Enalapril [Vasotec] 5 mg PO DAILY 01/18/17 [History] Gabapentin [Neurontin] 200 mg PO TID 01/18/17 [History] Naproxen Sodium [Aleve] 220 mg PO BID 01/18/17 [History] Oxybutynin 2.5 mg PO BID 01/18/17 [History] Polyethylene Glycol 3350 [MiraLAX] 17 g PO DAILY 01/18/17 [History] QUEtiapine [SEROquel] 12.5 mg PO BEDTIME 01/18/17 [History] Simvastatin [Zocor] 10 mg PO BEDTIME 01/18/17 [History] Patient Handouts: Hypoxemia, Parkinson Disease, [id number], Hypertension, [id number], Fall Prevention in the Home, Community-Acquired Pneumonia, Adult, [id number] Referrals: Fidel Broderick MD [Primary Care Provider] - - Discharge Summary/Plan Comment DC Time >30 min.: Yes (45 mins) Discharge Summary/Plan Comment: Discharge to [facility] - General Info Date of Service: 01/22/17 Admission Dx/Problem (Free Text: Admission Diagnosis/Problem Admission Diagnosis/Problem Pneumonia Subjective Update: Follow Up Functional Status: Reports: Pain Controlled, Tolerating Diet, Ambulating, Urinating. Denies: New Symptoms - Review of Systems General: Reports: Weakness. Denies: Fever, Malaise, Chills HEENT: Reports: No Symptoms Pulmonary: Denies: Shortness of Breath Cardiovascular: Denies: Chest Pain Gastrointestinal: Denies: Abdominal Pain, Nausea, Vomiting Genitourinary: Reports: No Symptoms Musculoskeletal: Reports: No Symptoms Skin: Reports: No Symptoms Neurological: Reports: Difficulty Walking, Weakness, Gait Disturbance. Denies: Confusion Psychiatric: Denies: Depression, Anxiety, Hallucinations Systems Review Comment: No overnight or acute issues. She is relatively well. She has no new complaints. Her vitals are stable. - Patient Data Vitals - Most Recent: Last Vital Signs Temp 36.8 C 01/22/17 03:30 Pulse 55 L 01/22/17 03:30 Resp 16 01/22/17 03:30 BP 134/63 01/22/17 03:30 Pulse Ox 94 L 01/22/17 03:30 Weight - Most Recent: 69.808 kg I&O - Last 24 hours: Intake & Output 01/21/17 01/22/17 01/22/17 22:59 06:59 14:59 Intake Total 240 400 Output Total 200 Balance 40 400 Lab Results - Last 24 hrs: Laboratory Results - last 24 hr 01/22/17 01/22/17 Range/Units 06:00 06:00 WBC 4.98 (3.98-10.04) K/mm3 RBC 3.86 L (3.98-5.22) M/mm3 Hgb 12.2 (11.2-15.7) gm/L Hct 36.7 (34.1-44.9) % MCV 95.1 H (79.4-94.8) fl MCH 31.6 (25.6-32.2) pg MCHC 33.2 (32.2-35.5) g/dl RDW Std Deviation 50.1 H (36.4-46.3) fL Plt Count 110 L (182-369) K/mm3 MPV 10.9 (9.4-12.3) fl Neut % (Auto) 47.3 (34.0-71.1) % Lymph % (Auto) 35.7 (19.3-51.7) % Saline % (Auto) 8.2 (4.7-12.5) % Eos % (Auto) 8.4 H (0.7-5.8) Baso % (Auto) 0.2 (0.1-1.2) % Neut # (Auto) 2.35 (1.56-6.13) K/mm3 Lymph # (Auto) 1.78 (1.18-3.74) K/mm3 Saline # (Auto) 0.41 H (0.24-0.36) K/mm3 Eos # (Auto) 0.42 H (0.04-0.36) K/mm3 Baso # (Auto) 0.01 (0.01-0.08) K/mm3 Sodium 144 (136-145) mEq/L Potassium 3.9 (3.5-5.1) mEq/L Chloride 109 H (98-107) mEq/L Carbon Dioxide 24 (21-32) mEq/L Anion Gap 14.9 (5-15) BUN 31 H (7-18) mg/dL Creatinine 0.9 (0.55-1.02) mg/dL Est Cr Clr Drug Dosing 41.87 mL/min Estimated GFR (MDRD) 60 (>60) mL/min BUN/Creatinine Ratio 34.4 H (14-18) Glucose 94 (83-115) mg/dL Calcium 8.6 (8.5-10.1) mg/dL Magnesium 2.0 (1.8-2.4) mg/dl C-Reactive Protein 0.8 (<1.0) mg/dL Med Orders - Current: Current Medications Acetaminophen (Tylenol) 650 mg PO Q4H PRN PRN Reason: Pain Acetaminophen (Tylenol) 650 mg PO BID [facility] Last Admin: 01/21/17 20:36 Dose: 650 mg Hydrocodone Bitart/Acetaminophen ([place] 325-5 Mg) 1 tab PO Q4H PRN PRN Reason: Pain (moderate 4-6) Al Hydroxide/Mg Hydroxide (Mag-Al Plus) 10 ml PO DAILY [facility] Last Admin: 01/21/17 11:16 Dose: Not Given Albuterol/Ipratropium (Duoneb 3.0-0.5 Mg/3 Ml) 3 ml NEB Q4H PRN PRN Reason: Shortness Of Breath/wheezing Aspirin (Halfprin) 81 mg PO DAILY [facility] Last Admin: 01/21/17 09:22 Dose: 81 mg Bisacodyl (Dulcolax) 5 mg PO DAILY PRN PRN Reason: Constipation Calcium Carbonate/Glycine (Tums) 500 mg PO DAILY [facility] Last Admin: 01/21/17 09:22 Dose: 500 mg Calcium Carbonate/Glycine (Tums) 500 mg PO DAILY PRN PRN Reason: Heartburn Carbidopa/Levodopa (Sinemet Cr 25-100 Mg) 2 tab PO Q6H [facility] Last Admin: 01/22/17 02:31 Dose: 2 tab Carbidopa/Levodopa (Sinemet 25-100 Mg) 1 tab PO BIDAC [facility] Last Admin: 01/22/17 06:54 Dose: 1 tab Cholecalciferol (Vitamin D3) 1,000 units PO BID [facility] Last Admin: 01/21/17 20:35 Dose: 1,000 units Clonazepam (Klonopin) 0.5 mg PO QPM [facility] Last Admin: 01/21/17 17:43 Dose: 0.5 mg Cyanocobalamin (Vitamin B12) 1,000 mcg PO DAILY [facility] Last Admin: 01/21/17 09:20 Dose: 1,000 mcg Docusate Sodium (Colace) 100 mg PO BID PRN PRN Reason: Constipation Donepezil HCl (Aricept) 10 mg PO BEDTIME [facility] Last Admin: 01/21/17 20:34 Dose: 10 mg Enalapril Maleate (Vasotec) 5 mg PO DAILY [facility] Last Admin: 01/21/17 09:22 Dose: 5 mg Gabapentin (Neurontin) 200 mg PO TID [facility] Last Admin: 01/21/17 20:36 Dose: 200 mg Guaifenesin/Phenylephrine HCl (Robitussin Dm) 5 ml PO Q4H PRN PRN Reason: Cough Hydralazine HCl (Apresoline) 10 mg IVPUSH Q4H PRN PRN Reason: Hypertension Last Admin: 01/20/17 12:36 Dose: 10 mg Hydrocortisone (Hydrocortisone 1% Crm) 0 gm TOP BID PRN PRN Reason: Pain Hydromorphone HCl (Dilaudid) 0.25 mg IVPUSH Q2H PRN PRN Reason: Pain (severe 7-10) Lorazepam (Ativan) 0.5 mg IV Q6H PRN PRN Reason: Anxiety Magnesium Sulfate (Pharmacy To Dose - Magnesium Replacement) 0 dose .XX ASDIRECTED PRN PRN Reason: RX TO WATCH MAG LEVELS Memantine (Namenda) 10 mg PO BID [facility] Last Admin: 01/21/17 20:33 Dose: 10 mg Metoprolol Tartrate (Lopressor) 12.5 mg PO BID [facility] Last Admin: 01/21/17 20:35 Dose: 12.5 mg Metoprolol Tartrate (Lopressor) 5 mg IVPUSH Q4H PRN PRN Reason: Tachycardia Naproxen (Naprosyn) 375 mg PO BID [facility] Last Admin: 01/21/17 20:35 Dose: 375 mg Ondansetron HCl (Zofran) 4 mg IV Q6H PRN PRN Reason: Nausea/Vomiting Oxybutynin Chloride (Oxybutynin) 2.5 mg PO BID [facility] Last Admin: 01/21/17 20:35 Dose: 2.5 mg Pantoprazole Sodium (Protonix) 40 mg PO DAILY [facility] Last Admin: 01/21/17 11:16 Dose: 40 mg Polyethylene Glycol (Miralax) 17 gm PO DAILY PRN PRN Reason: Constipation Polyethylene Glycol (Miralax) 17 gm PO DAILY [facility] Last Admin: 01/21/17 09:28 Dose: 17 gm Potassium Chloride (Pharmacy To Dose - Potassium Replacement) 0 dose .XX ASDIRECTED PRN PRN Reason: RX TO WATCH K LEVELS Quetiapine Fumarate (Seroquel) 12.5 mg PO BEDTIME [facility] Last Admin: 01/21/17 20:35 Dose: 12.5 mg Ropinirole HCl (Requip) 4 mg PO BID [facility] Last Admin: 01/21/17 20:33 Dose: 4 mg Saccharomyces Boulardii (Florastor) 500 mg PO BID [facility] Last Admin: 01/21/17 20:33 Dose: 500 mg Senna (Senna) 8.6 mg PO BID [facility] Last Admin: 01/21/17 20:33 Dose: 8.6 mg Senna/Docusate Sodium (Senna Plus) 1 tab PO BID PRN PRN Reason: Constipation Sertraline HCl (Zoloft) 75 mg PO DAILY [facility] Last Admin: 01/21/17 09:26 Dose: 75 mg Simethicone (Simethicone) 80 mg PO QID [facility] Last Admin: 01/21/17 20:33 Dose: 80 mg Simvastatin (Zocor) 10 mg PO BEDTIME [facility] Last Admin: 01/21/17 20:33 Dose: 10 mg Sodium Chloride (Saline Flush) 10 ml FLUSH ASDIRECTED PRN PRN Reason: Keep Vein Open Temazepam (Restoril) 7.5 mg PO BEDTIME PRN PRN Reason: Sleep Discontinued Medications Acetaminophen (Tylenol) 650 mg PO NOW ONE Stop: 01/18/17 13:36 Last Admin: 01/18/17 13:39 Dose: 650 mg Carbidopa/Levodopa (Sinemet 25-100 Mg) 1 tab PO DAILY@0600 [facility] Last Admin: 01/19/17 05:31 Dose: 1 tab Ceftriaxone Sodium (Rocephin) 1,000 mg IVPUSH Q24H [facility] Last Admin: 01/18/17 13:22 Dose: Not Given Hydromorphone HCl (Dilaudid) 0.25 mg IVPUSH Q2H PRN PRN Reason: Pain (severe 7-10) Ceftriaxone Sodium 1 gm/ (Sodium Chloride) 100 mls @ 200 mls/hr IV ONETIME ONE Stop: 01/18/17 13:39 Last Admin: 01/18/17 13:18 Dose: 200 mls/hr Azithromycin 500 mg/ Sodium (Chloride) 250 mls @ 250 mls/hr IV ONETIME ONE Stop: 01/18/17 17:10 Last Admin: 01/18/17 17:23 Dose: 250 mls/hr Azithromycin 500 mg/ Sodium (Chloride) 250 mls @ 250 mls/hr IV Q24H [facility] Last Admin: 01/20/17 15:01 Dose: 250 mls/hr Ceftriaxone Sodium 1 gm/ (Sodium Chloride) 100 mls @ 200 mls/hr IV Q24H [facility] Last Admin: 01/19/17 12:06 Dose: 200 mls/hr Ceftriaxone Sodium 1 gm/ (Dextrose/Water) 100 mls @ 200 mls/hr IV Q24H [facility] Last Admin: 01/20/17 12:36 Dose: 200 mls/hr Labetalol HCl (Normodyne) 5 mg IVPUSH ONETIME ONE PRN Reason: Protocol Stop: 01/18/17 10:16 Last Admin: 01/18/17 10:27 Dose: 5 mg Labetalol HCl (Normodyne) 5 mg IVPUSH ONETIME ONE PRN Reason: Protocol Stop: 01/18/17 10:56 Last Admin: 01/18/17 10:55 Dose: 5 mg - Exam General: Reports: Alert, Oriented, Cooperative, No Acute Distress, Other (slow movement) HEENT: Reports: Pupils Equal, Pupils Reactive, EOMI, Mucous Membr. Moist/Foot Of Ten Neck: Reports: Supple, Trachea Midline, No JVD Lungs: Reports: Clear to Auscultation, Normal Respiratory Effort Cardiovascular: Reports: Regular Rate, Regular Rhythm GI/Abdominal Exam: Normal Bowel Sounds, Soft, Non-Tender, No Organomegaly, No Distention, No Abnormal Bruit, No Mass, Pelvis Stable (Female) Exam: Deferred Rectal (Female) Exam: Deferred Back Exam: Reports: Normal Inspection, Decreased Range of Motion Extremities: Normal Inspection, Normal Range of Motion, Non-Tender, No Pedal Edema, Normal Capillary Refill Skin: Reports: Warm, Dry, Intact Neurological: Reports: No New Focal Deficit. Denies: Normal Gait Psy/Mental Status: Reports: Alert, Normal Mood. Denies: Normal Affect (flat affect) *Q Meaningful Use (DIS) - VTE *Q VTE Criteria *Q: - Stroke *Q Stroke Criteria *Q: - AMI *Q AMI Criteria *Q:
[2017-01-22] MEDS: Polyethylene Glycol 3350 Powder 17 GM Packet PO SCH ×2 (09:47→09:58)
[2017-01-22] MEDS: Sertraline 50 MG Tab PO SCH (09:48)
[2017-01-22] MEDS: Sennosides 8.6 MG Tab PO SCH (09:48)
[2017-01-22] MEDS: Pantoprazole 40 MG Tab.CR PO SCH (09:48)
[2017-01-22] MEDS: Cyanocobalamin (Vitamin B12) 1,000 MCG Tab PO SCH (09:48)
[2017-01-22] MEDS: Calcium Carbonate 500 MG Tab.Chew PO SCH (09:48)
[2017-01-22] MEDS: Simethicone 80 MG Tab.Chew PO SCH (09:49)
[2017-01-22] MEDS: rOPINIRole 1 MG Tab PO SCH (09:49)
[2017-01-22] MEDS: Cholecalciferol (Vitamin D3) 1,000 Unit Tab PO SCH (09:49)
[2017-01-22] MEDS: Memantine 10 MG Tab PO SCH (09:49)
[2017-01-22] MEDS: Metoprolol Tartrate 25 MG Tab PO SCH (09:49)
[2017-01-22] MEDS: Acetaminophen 325 MG Tab PO SCH (09:50)
[2017-01-22] MEDS: Oxybutynin 5 MG Tab PO SCH (09:51)
[2017-01-22] MEDS: Aspirin 81 MG Tab.EC PO SCH (09:51)
[2017-01-22] MEDS: Gabapentin 100 MG Cap PO SCH (09:51)
[2017-01-22] MEDS: Enalapril 5 MG Tab PO SCH (09:51)
[2017-01-22 09:52] VITALS: BP 111/66
[2017-01-22] MEDS: Saccharomyces Boulardii (Probiotic) 250 MG Cap PO SCH (09:52)
[2017-01-22] MEDS: Aluminum Hydroxide/Magnesium Hydroxide/Simethicone Susp 30 ML Cup PO SCH (09:58)
[2017-01-22] MEDS ORDERED: Pneumococcal 13-Valent Conjugate Vaccine 0.5 ML Syringe IM ONE (10:15)
== END 2017-01-22 10:10 | disposition home or self-care (01) | DRG 206 ==
LOC: JD.ED 09:13 → JD.MS 13:35
PROVIDERS: ADMIT Internal Medicine; ATTEND Internal Medicine
DX: J18.9 Pneumonia, unspecified organism (principal); R09.02 Hypoxemia; E87.0 Hyperosmolality and hypernatremia; R51 Headache; M25.512 Pain in left shoulder; M54.2 Cervicalgia; J40 Bronchitis, not specified as acute or chronic; I10 Essential (primary) hypertension; E78.5 Hyperlipidemia, unspecified; K59.09 Other constipation; H54.7 Unspecified visual loss; K21.9 Gastro-esophageal reflux disease without esophagitis; G70.00 Myasthenia gravis without (acute) exacerbation; M19.90 Unspecified osteoarthritis, unspecified site; G25.81 Restless legs syndrome; F32.9 Major depressive disorder, single episode, unspecified; F41.9 Anxiety disorder, unspecified; G20 Parkinson's disease; Z66 Do not resuscitate; W18.30XA Fall on same level, unspecified, initial encounter; Y92.099 Unspecified place in other non-institutional residence as the place of occurrence of the external cause; I95.1 Orthostatic hypotension; R53.82 Chronic fatigue, unspecified; E83.40 Disorders of magnesium metabolism, unspecified; M94.9 Disorder of cartilage, unspecified; R61 Generalized hyperhidrosis; Z91.81 History of falling; Z79.82 Long term (current) use of aspirin; Z79.899 Other long term (current) drug therapy; Z23 Encounter for immunization
CPT/HCPCS: 71020; 73030; 73502; 72125; 70450; 96365; 99285; 93005; 96375; 85025; 36415; 80053; 84484; 83880; 86140; 86738; 87040 ×2; J7030; J0696; 80048; 83735; 90670; 94760; 94761; 97110-GP; 97116-GP; 97162-GP; 97166-GO; 97530-GO; 97535-GO; A9270-GY; G0009; J0360; J0456; J7050; J7060

== ENCOUNTER 2017-10-07 23:51 | Emergency (ER) | payer MEDICARE, BC ==
--- NOTE | 2017-10-08 01:16 | EDM.PDOC ---
ED HPI GENERAL MEDICAL PROBLEM - General Chief Complaint: Upper Extremity Injury/Pain Stated Complaint: [facility] Time Seen by Provider: 10/08/17 01:10 - History of Present Illness INITIAL COMMENTS - FREE TEXT/NARRATIVE: 87-year-old female presents emergency room brought in by EMS [facility]. Patient had an unwitnessed fall from ground level landing on her right side and buttocks. This occurred shortly before arrival she complains of some pain in her shoulder on the right and around her pelvis. What was most concerning is initially they thought she had low blood pressure at the longterm home EMS found a normal blood pressure and her blood pressure has been normal here. Patient complains of only discomfort in the right shoulder and around the lower right pelvis she is not having any breathing difficulties no shortness of breath she denies hitting her head. She is not having any abdominal pain no nausea vomiting constipation or diarrhea. - Related Data Allergies Allergy/AdvReac Type Severity Reaction Status Date / Time No Known Allergies Allergy Verified 01/18/17 09:33 Home Meds: Home Meds Acetaminophen 650 mg PO BID 09/07/14 [History] Acetaminophen 650 mg PO Q4H PRN 09/07/14 [History] Carbidopa/Levodopa [Sinemet 25-100 mg] 1 tab PO BID 09/07/14 [History] Carbidopa/Levodopa [Sinemet Cr 50-200 mg] 1 tab PO QID 09/07/14 [History] Docusate Sodium 100 mg PO BID 09/07/14 [History] Memantine HCl [Namenda Xr] 28 mg PO DAILY 09/07/14 [History] Metoprolol Tartrate 12.5 mg PO BID 09/07/14 [History] Omeprazole [Prilosec] 20 mg PO DAILY 09/07/14 [History] Sertraline HCl [Zoloft] 75 mg PO DAILY 09/07/14 [History] Simethicone [Gas-X] 80 mg PO WITHMEALSANDBED 09/07/14 [History] clonazePAM [Klonopin] 0.5 mg PO BEDTIME 09/07/14 [History] rOPINIRole HCl [Requip] 4 mg PO BID 09/07/14 [History] Aspirin [Adult Low Dose Aspirin EC] 81 mg PO DAILY 10/02/15 [History] Cholecalciferol (Vitamin D3) [Vitamin D3] 1,000 unit PO BID 10/02/15 [History] [place]-3/DHA/Epa/Fish Oil [Fish Oil 1,000 mg Softgel] 1,000 mg PO BID 10/02/15 [ History] Sennosides [Senna] 1 tab PO BID 10/02/15 [History] Calcium Carbonate [Calcium] 500 mg PO DAILY 01/18/17 [History] Cyanocobalamin (Vitamin B12) [Vitamin B12] 1,000 mcg PO DAILY 01/18/17 [History] Donepezil [Aricept] 10 mg PO BEDTIME 01/18/17 [History] Enalapril [Vasotec] 5 mg PO DAILY 01/18/17 [History] Gabapentin [Neurontin] 200 mg PO TID 01/18/17 [History] Naproxen Sodium [Aleve] 220 mg PO BID 01/18/17 [History] Oxybutynin 2.5 mg PO BID 01/18/17 [History] Polyethylene Glycol 3350 [MiraLAX] 17 g PO DAILY 01/18/17 [History] QUEtiapine [SEROquel] 12.5 mg PO BEDTIME 01/18/17 [History] Simvastatin [Zocor] 10 mg PO BEDTIME 01/18/17 [History] Past Medical History HEENT History: Reports: Impaired Vision Other HEENT History: esophogeal reflux Cardiovascular History: Reports: High Cholesterol, Hypertension Respiratory History: Reports: SOB Gastrointestinal History: Reports: Chronic Constipation Genitourinary History: Reports: Urinary Incontinence Other Genitourinary History: hyperhidrosis 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: [place] Musculoskeletal History: Reports: Osteoarthritis Other Musculoskeletal History: cervical disc degeneration Neurological History: Reports: Parkinson's Other Neuro History: unsteady gait, altered mental status, RLS, myestenia gravis Psychiatric History: Reports: Anxiety, Depression - Past Surgical History Musculoskeletal Surgical History: Reports: Hip Replacement Social & Family History - Family History Family Medical History: Noncontributory Neurological: Reports: Parkinson's Endocrine/Metabolic: Reports: Brodie's Disease, Diabetes, type II - Tobacco Use Smoking Status *Q: Never Smoker - Caffeine Use Caffeine Use: Reports: None Caffeine Use Comment: Drinks one cup of coffee with breakfast, soda once a week - Recreational Drug Use Recreational Drug Use: No - Living Situation & Occupation Living situation: Reports: Assisted Living Occupation: Retired Review of Systems - Review of Systems Review Of Systems: See Below Constitutional: Reports: No Symptoms Ears: Reports: No Symptoms Nose: Reports: No Symptoms Mouth/Throat: Reports: No Symptoms Respiratory: Reports: No Symptoms Cardiovascular: Reports: No Symptoms GI/Abdominal: Reports: No Symptoms Genitourinary: Reports: No Symptoms Musculoskeletal: Reports: No Symptoms Skin: Reports: No Symptoms Neurological: Reports: No Symptoms Psychiatric: Reports: No Symptoms ED EXAM, GENERAL - Physical Exam Exam: See Below Exam Limited By: No Limitations General Appearance: Alert, No Apparent Distress Eye Exam: Bilateral Eye: EOMI, Normal Inspection Ears: Normal External Exam, Normal Canal, Hearing Grossly Normal, Normal TMs Nose: Normal Inspection, Normal Mucosa, No Blood Throat/Mouth: Normal Inspection, Normal Lips, Normal Gums, Normal Oropharynx, Normal Voice, No Airway Compromise Head: Atraumatic, Normocephalic Neck: Normal Inspection, Supple, Non-Tender, Full Range of Motion. No: Lymphadenopathy (L), Lymphadenopathy (R), Tender Midline Respiratory/Chest: No Respiratory Distress, Lungs Clear, Normal Breath Sounds Cardiovascular: Regular Rate, Rhythm, No Edema, No Murmur GI/Abdominal: Normal Bowel Sounds, Soft, Non-Tender Back Exam: Normal Inspection. No: CVA Tenderness (L), CVA Tenderness (R), Vertebral Tenderness Extremities: Normal Inspection, Normal Range of Motion, No Pedal Edema, Other ( She has some discomfort in the right pelvis there is no instability palpated) Neurological: Other (No change from baseline) Lymphatic: No Adenopathy Course - Vital Signs Last Recorded V/S: Last Vital Signs Temp 36.3 C 10/07/17 23:54 Pulse 53 L 10/08/17 02:04 Resp 18 10/08/17 01:09 BP 94/53 L 10/08/17 02:04 Pulse Ox 97 10/08/17 01:09 - Orders/Labs/Meds Orders: Active Orders 24 hr Category Date Time Status Pelvis Min 3V [CR] Stat Exams 10/08/17 01:16 Ordered Shoulder Comp Rt [CR] Stat Exams 10/08/17 01:16 Ordered - Re-Assessments/Exams Free Text/Narrative Re-Assessment/Exam: 10/08/17 02:42 X-rays of the pelvis are unremarkable x-ray of the right shoulder unremarkable she has shoulder discomfort we will not immobilize this as to prevent or limit adhesive capsulitis. She'll be discharged back to the longterm facility Departure - Departure Time of Disposition: 02:43 Disposition: DC/Tfer to [facility] Clinical Impression: Contusion of pelvis, Contusion of right shoulder - Discharge Information Referrals: Minor Bautista MD [Primary Care Provider] - Forms: ED Department Discharge Additional Instructions: Return to the emergency room with any questions problems worsening symptoms. Tylenol as needed for discomfort - My Orders Last 24 Hours: My Active Orders 10/08/17 01:16 Pelvis Min 3V [CR] Stat Shoulder Comp Rt [CR] Stat - Assessment/Plan Last 24 Hours: My Active Orders 10/08/17 01:16 Pelvis Min 3V [CR] Stat Shoulder Comp Rt [CR] Stat
[2017-10-08 02:05] VITALS: BP 94/53
--- NOTE | 2017-10-08 09:43 | CR ---
Right shoulder: Three views of the right shoulder were obtained. Comparison: No prior right shoulder study. Minimal degenerative change is noted within the acromioclavicular joint without abnormal inferior spurring. Glenohumeral joint appears to be maintained. No fracture or dislocation is seen. Questionable chronic rotator cuff tear is present. Impression: 1. Questionable chronic rotator cuff tear. Other incidental findings. 2. Nothing acute is seen. Diagnostic code #2
--- NOTE | 2017-10-08 09:43 | CR ---
Pelvis: AP view of the pelvis was obtained as well as two additional views. Joint space narrowing is seen within the left hip with osteophytes and degenerative cysts. Right hip prosthesis is noted. Degenerative change is seen within the visualized lower lumbar spine. Slight heterotopic bone is noted around the right hip. Osteopenia is present. No acute fracture or other bony abnormality is seen. Impression: 1. Right hip prosthesis. Degenerative change and osteopenia as noted above. 2. Nothing acute is appreciated on pelvis study. Diagnostic code #2
== END 2017-10-08 03:46 ==
LOC: JD.ED 23:51
DX: S30.0XXA Contusion of lower back and pelvis, initial encounter (principal); S40.011A Contusion of right shoulder, initial encounter; E78.00 Pure hypercholesterolemia, unspecified; I10 Essential (primary) hypertension; K21.9 Gastro-esophageal reflux disease without esophagitis; Z79.899 Other long term (current) drug therapy; Z79.82 Long term (current) use of aspirin; W19.XXXA Unspecified fall, initial encounter; Y92.129 Unspecified place in nursing home as the place of occurrence of the external cause
CPT/HCPCS: 72190; 72190-26; 73030-26-RT; 73030-RT; 99283; 99284

== ENCOUNTER 2017-12-27 17:37 | Emergency (ER) | payer MEDICARE, BC ==
[2017-12-27 17:48] VITALS: BP 119/63
--- NOTE | 2017-12-27 18:26 | EDM.PDOC ---
ED HPI GENERAL MEDICAL PROBLEM - General Chief Complaint: Cardiovascular Problem Stated Complaint: [facility] Time Seen by Provider: 12/27/17 17:51 Source of Information: Reports: EMS, Alf Records History Limitations: Reports: Altered Mental Status - History of Present Illness INITIAL COMMENTS - FREE TEXT/NARRATIVE: 87 y/o F with hx dementia, parkinson's, presents from care home ([facility]) for report of low blood pressure. She seemed sleepier than usual so nurses checked a blood pressure and it was "low". Nursing staff later though error may have been cuff problem with automatic cuff. No report of recent illness. ED nurse caring for hte patient here in the ED also works shifts at the care home and knows Alee well, states she appears at her baseline. No known fever. No additional complaint. No known recent medication changes. No known trauma. Alee is unable to meaningfully answer questions. 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: Reports: IV/IO - Related Data Allergies Allergy/AdvReac Type Severity Reaction Status Date / Time No Known Allergies Allergy Verified 12/27/17 17:48 Home Meds: Home Meds Acetaminophen 650 mg PO BID 09/07/14 [History] Acetaminophen 650 mg PO Q4H PRN 09/07/14 [History] Carbidopa/Levodopa [Sinemet 25-100 mg] 1 tab PO BID 09/07/14 [History] Carbidopa/Levodopa [Sinemet Cr 50-200 mg] 1 tab PO QID 09/07/14 [History] Metoprolol Tartrate 12.5 mg PO BID 09/07/14 [History] Sertraline HCl [Zoloft] 100 mg PO DAILY 09/07/14 [History] Simethicone [Gas-X] 80 mg PO WITHMEALSANDBED 09/07/14 [History] clonazePAM [Klonopin] 0.25 mg PO BEDTIME 09/07/14 [History] rOPINIRole HCl [Requip] 4 mg PO BID 09/07/14 [History] Aspirin [Adult Low Dose Aspirin EC] 81 mg PO DAILY 10/02/15 [History] Cholecalciferol (Vitamin D3) [Vitamin D3] 2,000 unit PO DAILY 10/02/15 [History] [place]-3/DHA/Epa/Fish Oil [Fish Oil 1,000 mg Softgel] 1,000 mg PO BID 10/02/15 [ History] Sennosides [Senna] 1 tab PO BID 10/02/15 [History] Calcium Carbonate [Calcium] 500 mg PO DAILY 01/18/17 [History] Cyanocobalamin (Vitamin B12) [Vitamin B12] 1,000 mcg PO DAILY 01/18/17 [History] Donepezil [Aricept] 10 mg PO BEDTIME 01/18/17 [History] Enalapril [Vasotec] 5 mg PO DAILY 01/18/17 [History] Gabapentin [Neurontin] 200 mg PO TID 01/18/17 [History] Oxybutynin 2.5 mg PO BID 01/18/17 [History] Polyethylene Glycol 3350 [MiraLAX] 17 g PO DAILY 01/18/17 [History] Simvastatin [Zocor] 10 mg PO BEDTIME 01/18/17 [History] Bisacodyl [Biscolax] 10 mg RECTAL DAILY PRN 10/29/17 [History] Bisacodyl [Dulcolax] 10 mg PO DAILY 10/29/17 [History] Calcium Carbonate [Tums] 400 mg PO DAILY PRN 10/29/17 [History] Dextran 70/Hypromellose [Artificial Tears] 1 drop EYEBOTH BID 10/29/17 [History] Naproxen Sodium [Aleve] 220 mg PO BID 10/29/17 [History] QUEtiapine [SEROquel] 50 mg PO DAILY 10/29/17 [History] Ranitidine [Zantac] 150 mg PO BID PRN 10/29/17 [History] traMADol [Ultram] 50 mg PO BID 10/29/17 [History] Past Medical History HEENT History: Reports: Impaired Vision Other HEENT History: esophogeal reflux Cardiovascular History: Reports: High Cholesterol, Hypertension Other Cardiovascular History: edema Respiratory History: Reports: SOB Gastrointestinal History: Reports: Chronic Constipation, GERD Genitourinary History: Reports: Urinary Incontinence Other Genitourinary History: hyperhidrosis FEDERAL JUDGE History: Reports: Other FEDERAL JUDGE History: [place] Musculoskeletal History: Reports: Osteoarthritis, Other (See Below) Other Musculoskeletal History: cervical disc degeneration, chronic pain, restless legs syndrome Neurological History: Reports: Parkinson's Other Neuro History: unsteady gait, altered mental status, RLS, myestenia gravis Psychiatric History: Reports: Anxiety, Dementia, Depression, Mood Swings, Psychosis Endocrine/Metabolic History: Reports: Other (See Below) Other Endocrine/Metabolic History: hypomagnesmia - Past Surgical History Musculoskeletal Surgical History: Reports: Hip Replacement Social & Family History - Family History Family Medical History: Noncontributory Neurological: Reports: Parkinson's Endocrine/Metabolic: Reports: Brodie's Disease, Diabetes, type II - Tobacco Use Smoking Status *Q: Unknown Ever Smoked - Caffeine Use Caffeine Use: Reports: Coffee Caffeine Use Comment: Drinks one cup of coffee with breakfast, soda once a week - Recreational Drug Use Recreational Drug Use: No - Living Situation & Occupation Living situation: Reports: Extended Care Facility (Living in [facility]), Assisted Living Occupation: Retired ED ROS GENERAL - Review of Systems Review Of Systems: ROS reveals no pertinent complaints other than HPI. Constitutional: Denies: Fever Respiratory: Reports: No Symptoms Cardiovascular: Reports: Blood Pressure Problem Endocrine: Reports: No Symptoms GI/Abdominal: Reports: No Symptoms Neurological: Denies: Change in Speech ED EXAM, GENERAL - Physical Exam Exam: See Below Exam Limited By: No Limitations General Appearance: Alert, WD/WN, No Apparent Distress Eye Exam: Bilateral Eye: Normal Inspection Ears: Normal External Exam Nose: Normal Inspection, Normal Mucosa, No Blood Throat/Mouth: Normal Inspection, Normal Voice, Other (dry MM) Head: Atraumatic, Normocephalic Neck: Normal Inspection Respiratory/Chest: No Respiratory Distress, Lungs Clear, Normal Breath Sounds Cardiovascular: Normal Peripheral Pulses, Regular Rate, Rhythm, No Edema GI/Abdominal: Soft, Non-Tender, No Distention. No: Rebound Back Exam: Normal Inspection Extremities: Normal Inspection Neurological: Alert, CN II-XII Intact, No Motor/Sensory Deficits Psychiatric: Normal Affect Skin Exam: Warm, Dry, Intact, Normal Color, No Rash Course - Vital Signs Last Recorded V/S: Last Vital Signs Temp 36.3 C 12/27/17 17:37 Pulse 58 L 12/27/17 17:37 Resp 14 12/27/17 17:37 BP 119/63 12/27/17 17:37 Pulse Ox 96 12/27/17 17:37 - Orders/Labs/Meds Labs: Laboratory Tests 12/27/17 12/27/17 Range/Units 18:15 18:15 WBC 5.19 (3.98-10.04) K/mm3 RBC 3.99 (3.98-5.22) M/mm3 Hgb 13.2 (11.2-15.7) gm/L Hct 39.4 (34.1-44.9) % MCV 98.7 H (79.4-94.8) fl MCH 33.1 H (25.6-32.2) pg MCHC 33.5 (32.2-35.5) g/dl RDW Std Deviation 47.1 H (36.4-46.3) fL Plt Count 126 L (182-369) K/mm3 MPV 11.0 (9.4-12.3) fl Neut % (Auto) 58.5 (34.0-71.1) % Lymph % (Auto) 30.1 (19.3-51.7) % Williams % (Auto) 7.9 (4.7-12.5) % Eos % (Auto) 3.1 (0.7-5.8) Baso % (Auto) 0.2 (0.1-1.2) % Neut # (Auto) 3.04 (1.56-6.13) K/mm3 Lymph # (Auto) 1.56 (1.18-3.74) K/mm3 Williams # (Auto) 0.41 H (0.24-0.36) K/mm3 Eos # (Auto) 0.16 (0.04-0.36) K/mm3 Baso # (Auto) 0.01 (0.01-0.08) K/mm3 Sodium 140 (136-145) mEq/L Potassium 4.4 (3.5-5.1) mEq/L Chloride 104 (98-107) mEq/L Carbon Dioxide 28 (21-32) mEq/L Anion Gap 12.4 (5-15) BUN 37 H (7-18) mg/dL Creatinine 1.3 H (0.55-1.02) mg/dL Est Cr Clr Drug Dosing TNP Estimated GFR (MDRD) 39 (>60) mL/min BUN/Creatinine Ratio 28.5 H (14-18) Glucose 102 (83-115) mg/dL Calcium 9.6 (8.5-10.1) mg/dL Total Bilirubin 0.6 (0.2-1.0) mg/dL AST 14 L (15-37) U/L ALT 7 L (14-59) U/L Alkaline Phosphatase 64 (46-116) U/L Troponin I < 0.017 (0.00-0.056) ng/mL Total Protein 6.7 (6.4-8.2) g/dl Albumin 4.1 (3.4-5.0) g/dl Globulin 2.6 gm/dL Albumin/Globulin Ratio 1.6 (1-2) - Re-Assessments/Exams Free Text/Narrative Re-Assessment/Exam: 12/27/17 18:25 Well appearing, seems to be at baseline, and BP's here are very normal. No definite explanation for report of low BP at care home. Will check basic labs , EKG, CXR, and if non-concerning anticipate dc back to [facility]. 12/27/17 18:54 Labs all at baseline. She continues to be well appearing. Will dc back to [facility]. Departure - Departure Time of Disposition: 18:54 Disposition: Home, Self-Care 01 Condition: Fair Clinical Impression: Encounter for medical screening examination Referrals: PCP,Unknown [Ordering Only Provider] - Forms: ED Department Discharge Additional Instructions: 1. Continue your usual medications 2. Follow up with your primary care provider as needed 3. Return to the ED as needed for any new concerning symptoms, such as significant change in mental status, severe pain, fever, or other concerning symptoms.
--- NOTE | 2017-12-28 17:03 | CR ---
Chest: Portable view of the chest was obtained. Comparison: Prior chest x-ray of 10/29/17. Heart size is within normal limits. Tortuous thoracic aorta is seen. Lungs are clear. Degenerative change noted within both shoulders. Scattered degenerative change is also noted within the spine. Impression: 1. Nothing acute is identified on portable chest x-ray. Diagnostic code #2
== END 2017-12-27 19:55 | disposition home or self-care (01) ==
LOC: JD.ED 17:37
DX: Z13.9 Encounter for screening, unspecified (principal); I10 Essential (primary) hypertension; E78.00 Pure hypercholesterolemia, unspecified; K21.9 Gastro-esophageal reflux disease without esophagitis; F41.9 Anxiety disorder, unspecified; F32.9 Major depressive disorder, single episode, unspecified; Z79.899 Other long term (current) drug therapy; Z79.82 Long term (current) use of aspirin
CPT/HCPCS: 36415; 71045; 71045-26; 80053; 84484; 85025; 93005; 99283; 99285-25

== ENCOUNTER 2018-06-18 15:15 | Emergency (ER) | payer MEDICARE, BC ==
[2018-06-18 15:55] VITALS: BP 118/64
--- NOTE | 2018-06-18 16:51 | CT ---
Head CT Technique: Multiple axial sections through the brain were obtained. Intravenous contrast was not utilized. Comparison: Prior head CT study of of 03/18/18 and MRI brain of 03/19/18. Findings: Ventricles along with basal cisterns and sulci over the convexities are mildly prominent. Mild diminished density is noted within portions of the periventricular white matter compatible with small vessel ischemic demyelination change. No other abnormal parenchymal densities are seen. No evidence of intracranial hemorrhage. No midline shift or mass effect is seen. Bone window settings were reviewed which shows soft tissue swelling within the left frontal scalp. No acute calvarial abnormality is appreciated. Visualized sinuses are clear. Atherosclerotic calcification is noted within the carotid siphon. Impression: 1. Soft tissue swelling within the scalp. 2. Mild senescent change as noted above. 3. No acute intracranial abnormality or acute skull fracture is seen. Diagnostic code #2
--- NOTE | 2018-06-18 17:02 | CR ---
Right femur: AP and lateral views of the right femur were obtained. Comparison: No previous femur exam, previous pelvis and right hip exam of 06/03/18. Stable greater trochanteric fracture is seen from previous exam. Right hip prosthesis is noted. Vascular calcification and osteopenia are seen. Mild degenerative change is noted within the lateral joint compartment of the knee. No acute fracture or other abnormality is appreciated. Impression: 1. Stable greater trochanteric fracture. 2. Other incidental findings. Nothing acute is appreciated on right femur exam. Diagnostic code #2
--- NOTE | 2018-06-18 17:02 | CR ---
Pelvis and right hip: AP view of pelvis was obtained as well as AP and lateral views of the right hip. Degenerative change is partially visualized within the lower lumbar spine. Right hip prosthesis is noted. Stable greater trochanteric fracture is seen. Stable degenerative change is noted within the left hip. Bony structures are osteoporotic. Vascular calcification is noted. Nothing acute is appreciated. Impression: 1. Stable findings as noted above. Nothing acute is appreciated. Diagnostic code #2
--- NOTE | 2018-06-18 17:02 | CR ---
Left hip: AP view of the left hip was obtained. Joint space narrowing is seen within the superior left hip. Bony structures are osteoporotic. Vascular calcification is noted. No acute fracture or other abnormality is seen. Impression: 1. Degenerative change. Nothing acute is seen on single AP left hip exam. Diagnostic code #2
[2018-06-18] MEDS ORDERED: Lidocaine 1% 50 ML MDV INJECT ONE (17:36)
--- NOTE | 2018-06-18 17:36 | EDM.PDOC ---
ED HPI GENERAL MEDICAL PROBLEM - General Chief Complaint: Laceration Stated Complaint: [facility] Time Seen by Provider: 06/18/18 15:49 Source of Information: Reports: Patient (Daughter), EMS, Family, RN Notes Reviewed - History of Present Illness INITIAL COMMENTS - FREE TEXT/NARRATIVE: 88-year-old female fell at the senior living. She does have dementia, is supposed to be up with assistance only. She does not walk. She apparently was on the toilet, tried to get up and fell forward suffering laceration injury to the top of her head. Her daughter is also worried about her right hip. She did suffer a right hip fracture about 2 or 3 months ago, had hip replacement surgery at that time. The patient with her dementia is not able to really answer questions in a reasonable way. She does not remember what happened. Head Pain Score (Numeric/FACES): 5 - Related Data Allergies Allergy/AdvReac Type Severity Reaction Status Date / Time No Known Allergies Allergy Verified 06/18/18 15:55 Home Meds: Home Meds Acetaminophen 650 mg PO BID 09/07/14 [History] Carbidopa/Levodopa [Sinemet 25-100 mg] 1 tab PO BID 09/07/14 [History] Carbidopa/Levodopa [Sinemet Cr 50-200 mg] 1 tab PO QID 09/07/14 [History] Sertraline HCl [Zoloft] 100 mg PO DAILY 09/07/14 [History] Simethicone [Gas-X] 80 mg PO WITHMEALSANDBED 09/07/14 [History] clonazePAM [Klonopin] 0.25 mg PO BEDTIME 09/07/14 [History] rOPINIRole HCl [Requip] 4 mg PO BID 09/07/14 [History] Cholecalciferol (Vitamin D3) [Vitamin D3] 2,000 unit PO DAILY 10/02/15 [History] Sennosides [Senna] 1 tab PO BID 10/02/15 [History] Calcium Carbonate [Calcium] 500 mg PO DAILY 01/18/17 [History] Cyanocobalamin (Vitamin B12) [Vitamin B12] 1,000 mcg PO DAILY 01/18/17 [History] Enalapril [Vasotec] 2.5 mg PO DAILY 01/18/17 [History] Oxybutynin 2.5 mg PO BID 01/18/17 [History] Polyethylene Glycol 3350 [MiraLAX] 17 g PO DAILY 01/18/17 [History] Bisacodyl [Biscolax] 10 mg RECTAL DAILY PRN 10/29/17 [History] Bisacodyl [Dulcolax] 10 mg PO DAILY PRN 10/29/17 [History] Calcium Carbonate [Tums] 400 mg PO DAILY PRN 10/29/17 [History] Dextran 70/Hypromellose [Artificial Tears] 1 drop EYEBOTH BID 10/29/17 [History] Naproxen Sodium [Aleve] 220 mg PO BID 10/29/17 [History] QUEtiapine [SEROquel] 50 mg PO TID 10/29/17 [History] Ranitidine [Zantac] 150 mg PO BID PRN 10/29/17 [History] traMADol [Ultram] 50 mg PO BID 10/29/17 [History] Acetaminophen/HYDROcodone [[place] 325-5 MG] 1 tab PO Q6H PRN #12 tablet 03/15/18 [Rx] Acetaminophen 650 mg PO Q4H PRN 03/19/18 [History] Aspirin [Adult Low Dose Aspirin EC] 162 mg PO DAILY #60 03/19/18 [Rx] Rivastigmine Tartrate [Rivastigmine] 1.5 mg PO BID 06/18/18 [History] Past Medical History HEENT History: Reports: Impaired Vision Other HEENT History: esophogeal reflux Cardiovascular History: Reports: High Cholesterol, Hypertension Other Cardiovascular History: edema Respiratory History: Reports: SOB Gastrointestinal History: Reports: Chronic Constipation, GERD Genitourinary History: Reports: Urinary Incontinence Other Genitourinary History: hyperhidrosis PHOTO TECHNOLOGIST History: Reports: Other PHOTO TECHNOLOGIST History: [place] Musculoskeletal History: Reports: Osteoarthritis, Other (See Below) Other Musculoskeletal History: cervical disc degeneration, chronic pain, restless legs syndrome Neurological History: Reports: Parkinson's Other Neuro History: unsteady gait, altered mental status, RLS, myestenia gravis Psychiatric History: Reports: Anxiety, Dementia, Depression, Mood Swings, Psychosis Endocrine/Metabolic History: Reports: Other (See Below) Other Endocrine/Metabolic History: hypomagnesmia - Infectious Disease History Infectious Disease History: Reports: C-Difficile - Past Surgical History Female Surgical History: Reports: Hysterectomy Musculoskeletal Surgical History: Reports: Hip Replacement Other Musculoskeletal Surgeries/Procedures:: current fx hip Right side Social & Family History - Family History Family Medical History: Noncontributory Neurological: Reports: Parkinson's Endocrine/Metabolic: Reports: [place]'s Disease, Diabetes, type II - Tobacco Use Smoking Status *Q: Never Smoker Second Hand Smoke Exposure: No - Caffeine Use Caffeine Use: Reports: Coffee Caffeine Use Comment: Drinks one cup of coffee with breakfast, soda once a week - Recreational Drug Use Recreational Drug Use: No - Living Situation & Occupation Living situation: Reports: Extended Care Facility (Living in [facility]), Assisted Living Occupation: Retired ED ROS GENERAL - Review of Systems Review Of Systems: Unable To Obtain (Patient has quite severe dementia, unable to give accurate review of systems history) ED EXAM, SKIN/RASH Exam: See Below General Appearance: Alert, Other (Confused) Eye Exam: Bilateral Eye: PERRL Ears: Normal External Exam Nose: Normal Inspection Throat/Mouth: Normal Inspection Head: Other (1.570 laceration frontal superior scalp shallow but gaping) Neck: Non-Tender Respiratory/Chest: No Respiratory Distress, Lungs Clear, Chest Non-Tender Cardiovascular: Regular Rate, Rhythm GI/Abdominal: Soft, Non-Tender Extremities: Normal Inspection, Other (Question mild tenderness right hip and left hip) Neurological: Alert, Confused Skin: Warm, Dry ED SKIN PROCEDURES - Laceration/Wound Repair Head Lac/Wound length In cm: 1.5 Appearance: Linear Distal NVT: Neuro & Vascular Intact Anesthetic Type: Local Local Anesthesia - Lidocaine (Xylocaine): 1% Plain Skin Prep: Saline Suture Size: 3-0 # of Sutures: 3 Course - Vital Signs Last Recorded V/S: Last Vital Signs Temp 98.3 F 06/18/18 15:50 Pulse 76 06/18/18 15:50 Resp 18 06/18/18 15:50 BP 118/64 06/18/18 15:50 Pulse Ox 97 06/18/18 15:50 - Orders/Labs/Meds Meds: Medications Discontinued Medications Generic Name Dose Route Start Last Admin Trade Name Freq PRN Reason Stop Dose Admin Lidocaine HCl 50 ml 06/18/18 17:36 06/18/18 17:48 Xylocaine 1% INJECT 06/18/18 17:37 50 ml ONETIME ONE Administration - Re-Assessments/Exams Free Text/Narrative Re-Assessment/Exam: 06/19/18 15:24 X-rays of her hips pelvis and right femur were all negative for fracture. Laceration superior scalp was sutured. 06/19/18 15:[address]. [address] did not show any acute findings. Departure - Departure Time of Disposition: 17:35 Disposition: DC/Tfer to [facility] Condition: Fair Clinical Impression: Fall Qualifiers: Encounter type: initial encounter Qualified Code(s): W19.XXXA - Unspecified fall, initial encounter Scalp laceration Qualifiers: Encounter type: initial encounter Qualified Code(s): S01.01XA - Laceration without foreign body of scalp, initial encounter Contusion, hip and thigh Qualifiers: Encounter type: initial encounter Laterality: right Qualified Code(s): S70.01XA - Contusion of right hip, initial encounter - Discharge Information Instructions: Contusion, Laceration Care, Adult Referrals: Fidel Broderick MD [Primary Care Provider] - Forms: ED Department Discharge Additional Instructions: Continue present care, laceration care instructions, stitches out in about 8 days, antibiotic ointment to area of injury twice daily, up with assistance only.
== END 2018-06-18 18:15 ==
LOC: JD.ED 15:15
DX: S01.01XA Laceration without foreign body of scalp, initial encounter (principal); S70.01XA Contusion of right hip, initial encounter; E78.00 Pure hypercholesterolemia, unspecified; I10 Essential (primary) hypertension; Z79.899 Other long term (current) drug therapy; Z79.82 Long term (current) use of aspirin; W18.30XA Fall on same level, unspecified, initial encounter; Y92.129 Unspecified place in nursing home as the place of occurrence of the external cause
CPT/HCPCS: 12001; 70450; 73501; 73502; 73552; 99285; J2001; 99282